=== PATIENT | female | born 1945 | race Caucasian/White ===

== ENCOUNTER 2018-05-12 08:48 | Day surgery (SDC) | payer OTHER, BC ==
--- OUTSIDE RECORDS SUMMARY | 2018-05-12 08:51 | XMS REPORT | Clinical Summary ---
:1945 Author Organization [facility] Address [address] [place] [address] Care Team Providers Name Role Phone Kimani Bone MD Primary Care Provider Allergies No Known Allergies Medications Medication Sig Dispensed Refills Start Date End Date Status RESTASIS 0.05 % 0 12/03/2017 Active ophthalmic emulsion meloxicam (MOBIC) 15 0 02/06/2018 Active mg tablet omeprazole TAKE 1 0 11/18/2017 Active (PriLOSEC) 40 MG CAPSULE BY capsule MOUTH ONCE DAILY levothyroxine Take 50 mcg 0 05/17/2017 Active (SYNTHROID, LEVOXYL) by mouth. 50 mcg tablet aspirin (ECOTRIN) 81 Take 81 mg by 0 Active MG enteric coated mouth. 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 Last Filed Vital Signs Vital Sign Reading Time Taken Blood Pressure - - Pulse - - Temperature - - Respiratory Rate - - Oxygen Saturation - - Inhaled Oxygen Concentration - - Weight 86.2 kg (190 lb) 03/10/2018 8:25 AM CDT Height 160 cm (5' 3") 03/10/2018 8:25 AM CDT Body Mass Index 33.66 03/10/2018 8:25 AM CDT Plan of Treatment Health Maintenance Due Date Last Done Comments BREAST CANCER SCREENING 1995 COLON CANCER SCREENING 1995 SHINGRIX VACCINE (1 of 2) 1995 ZOSTER VACCINE 2005 PNEUMOCOCCAL POLYSACCHARIDE VACCINE AGE 65 AND OVER 2010 INFLUENZA VACCINE 01/08/2018 05/10/2016 PNEUMOCOCCAL-13 Completed 01/01/2018 Procedures Procedure Name Priority Date/Time Associated Diagnosis Comments OCT, OPTIC NERVE - Routine 03/10/2018 9:06 AM Visual field defect Results for this OU - BOTH EYES CDT of left eye procedure are in Unspecified visual the results field defects section. 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 after 05/11/2017 Results OCT, Optic Nerve - OU (03/10/2018 9:06 AM CDT) Narrative Performed At Right Eye Reliability was good. Temporal progression was stable. Temporal thickness was normal. Superior progression was stable. Superior thickness was normal. Nasal progression was stable. Nasal thickness was normal. Inferior progression was stable. Inferior thickness was normal. Left Eye Reliability was good. Temporal progression was stable. Temporal thickness was normal. Superior progression was stable. Superior thickness was normal. Nasal progression was stable. Nasal thickness was normal. Inferior progression was stable. Inferior thickness was normal. Notes OD: 103 OS: 105 Automated Visual Field, Extended - OU (03/10/2018 9:06 AM CDT) Narrative Performed At Right Eye Threshold was 24-2. Strategy was GILLIAN. Reliability was borderline. Progression has no prior data. Foveal threshold was normal. -3.06. Findings include non-specific defects. Left Eye Threshold was 24-2. Strategy was GILLIAN. Reliability was borderline. Progression has no prior data. Foveal threshold was normal. -2.78. Findings include non-specific defects. after 05/11/2017 Insurance Payer Benefit Plan / Group Subscriber ID Type Phone Address MEDICARE MEDICARE PART A AND B xxxxxxxxxx Medicare [place], [place] BCBS BCBS CHOICE PPO/FEDERAL EMPL PPO xxxxxxxxxxxx PPO Advance Directives Patient has advance care planning documents on file. For more information, please contact:Atif Polanco[address] [place] [address]
[2018-05-12] MEDS ORDERED: LIDOCAINE 2% MPF 5 ML VIAL ONE ×2 (09:25→11:15)
[2018-05-12] MEDS ORDERED: BUPIVACAINE 0.25% PF 10 ML VIAL ONE (09:25)
[2018-05-12] MEDS ORDERED: TETRACAINE HCL 0.5% 2ML OPTH ONE (09:26)
[2018-05-12] MEDS ORDERED: NA CHLORIDE 0.9% 500 ML ONE (09:26)
[2018-05-12] MEDS: PHENYLEPHRINE 10% OPTH 5ML ONE ×3 (09:35→09:45)
[2018-05-12] MEDS: CYCLOPENTOLATE 1% OPTH 2 ML ONE ×3 (09:35→09:45)
[2018-05-12] MEDS ORDERED: NS 0.9% VIAL 10 ML ONE (09:59)
[2018-05-12] MEDS ORDERED: DUOVISC 1 KIT OPTH ONE (10:00)
[2018-05-12] MEDS ORDERED: MOXIFLOXACIN HCL 10 DROPS/ML **OR USE OPTH ONE (10:00)
[2018-05-12] MEDS ORDERED: BALANCED SALT IRRIG PLAIN 500 ML BTL IRR ONE (10:00)
[2018-05-12] MEDS ORDERED: PROPOFOL 200 MG/20 ML VIAL IV ONE (10:22)
[2018-05-12] MEDS ORDERED: LIDOCAINE 1% MPF 2 ML AMPULE ONE (10:23)
[2018-05-12] MEDS ORDERED: GLYCOPYRROLATE 0.2 MG/ML SYR ONE (11:08)
[2018-05-12] MEDS: EPINEPHRINE/PF 1 MG/ML AMP ONE ×2 (11:12→11:13)
--- NOTE | 2018-05-12 11:32 | P.BOP ---
Preoperative diagnosis: Nuclear sclerotic and cortical cataract, regular astigmatism OS Postoperative diagnosis: Same Primary procedure: Phacoemulsification with Toric IOL OS Estimated blood loss: None Anesthesia: Local (Subtenon's infusion with anesthesia for cataract surgery) Complications: None Implants: [id number] +27.0 @ 0 degrees Transferred to: Other (Day surgery) Condition: Good
--- NOTE | 2018-05-12 23:04 | OP ---
Surgeon: Maritza Greer MD Anesthesiologist: Aurora Wren CRNA; Sheila Oquendo CRNA; and Danny Leach MD. Preoperative Diagnosis: Nuclear sclerotic, cortical cataract, and regular astigmatism, left eye. Operation Performed: Phacoemulsification with intraocular lens implant, left eye. Anesthesia: Per cataract surgery. Complications: None. Description Of Procedure: In day surgery, the patient was prepped with Betadine and draped. A conju nctival incision was made in the inferior nasal quadrant with Conor scissors. A sub-Tenon block c onsisting of a 1:1 mixture of 2% Xylocaine and 0.25% bupivacaine was placed through the conjunctival incision with a blunt cannula. A Honan balloon was placed over the eye and the patient was transferr ed to the operating room. In the operating room the patient was prepped and draped in the usual sterile fashion for ophthalmic surgery. A lid speculum was placed in the left eye. Two paracentesis sites were made superiorly and inferiorly in the limbal cornea. Viscoat was placed in the anterior chamber and a crescent blade wa s used to make a corneal groove and tunnel, and a keratome was used to enter the anterior chamber. P rovisc was placed in the anterior chamber and a 360 degree capsulotomy was performed with a cystitome . The lens was hydrodissected with BSS and rotated freely. The lens was removed with a stop and cho p technique. A 4.67 phaco CDE was used to remove the lens. Residual cortex was removed with the irr igation and aspiration. Provisc was placed in the capsular bag. A [id number] +27 at 0 degrees lens was placed in the capsular bag without complications. Irrigation and aspiration were used to remove resi dual viscoelastic. The paracentesis sites were hydrated with BSS. The wound and paracentesis sites were inspected and found to be watertight. Vigamox 0.07 cc was placed intracamerally at the end of t he procedure. The eye was irrigated with balanced salt solution. The eye was patched with a soft co tton patch and Crystal metal shield. The patient was returned to day surgery in good condition. Comments: Discharge Instructions: Ms. Marmolejo is discharged to home in good condition and is to follow up with Dr. Greer. SHAISTA/LIBRADO Voice ID: [id number] Report ID: [id number]
== END 2018-05-12 12:00 | disposition home or self-care (01) ==
LOC: OR 08:48
PROVIDERS: ATTEND Ophthalmology Retina Specialist
PROC: 08RK3JZ Replacement of Left Lens with Synthetic Substitute, Percutaneous Approach (ICD-10-PCS; principal; 2018-05-12 09:50)
DX: H25.12 Age-related nuclear cataract, left eye (principal); H25.012 Cortical age-related cataract, left eye; H52.222 Regular astigmatism, left eye; H04.123 Dry eye syndrome of bilateral lacrimal glands; E07.9 Disorder of thyroid, unspecified; Z80.9 Family history of malignant neoplasm, unspecified
CPT/HCPCS: 66984; J0171; J2001; J2704; V2787

== ENCOUNTER 2018-06-16 06:54 | Day surgery (SDC) | payer OTHER, BC ==
--- OUTSIDE RECORDS SUMMARY | 2018-06-16 06:57 | XMS REPORT | Clinical Summary ---
:1945 Author Organization [facility] Address [address] [place] [address] Care Team Providers Name Role Phone Kimani [...] pathway; Nuclear age-related cataract, both eyes after 06/15/2017 Social History Tobacco Use Types Packs/Day Years [...] CANCER SCREENING 1995 COLON CANCER SCREENING 1995 SHINGLES VACCINES (1 of 2) 1995 PNEUMOCOCCAL POLYSACCHARIDE VACCINE AGE 65 AND OVER [...] Blurred vision, the results bilateral section. after 06/15/2017 Results OCT, Optic Nerve - OU (03/10/2018 [...] normal. -2.78. Findings include non-specific defects. after 06/15/2017 Insurance Payer Benefit Plan / Group Subscriber ID Type Phone Address MEDICARE MEDICARE PART A AND B xxxxxxxxxx Medicare [place], [place] BCBS BCBS CHOICE PPO/FEDERAL EMPL PPO xxxxxxxxxxxx PPO Advance Directives Patient has advance care planning documents on file. For more information, please contact:Atif Polanco[address] [place] [address]
[2018-06-16] MEDS ORDERED: NA CHLORIDE 0.9% 500 ML ONE (07:18)
[2018-06-16] MEDS ORDERED: BUPIVACAINE 0.25% PF 10 ML VIAL ONE (07:18)
[2018-06-16] MEDS ORDERED: LIDOCAINE 2% MPF 5 ML VIAL ONE (07:18)
[2018-06-16] MEDS ORDERED: TETRACAINE HCL 0.5% 2ML OPTH ONE (07:18)
[2018-06-16] MEDS: PHENYLEPHRINE 10% OPTH 5ML ONE ×3 (07:19→07:29)
[2018-06-16] MEDS: CYCLOPENTOLATE 1% OPTH 2 ML ONE ×3 (07:19→07:29)
[2018-06-16] MEDS ORDERED: LIDOCAINE 1% MPF 5 ML VIAL ONE ×2 (07:19→08:23)
[2018-06-16] MEDS ORDERED: NS 0.9% VIAL 10 ML ONE (08:01)
[2018-06-16] MEDS ORDERED: EPINEPHRINE/PF 1 MG/ML AMP ONE (08:02)
[2018-06-16] MEDS ORDERED: DUOVISC 1 KIT OPTH ONE (08:03)
[2018-06-16] MEDS ORDERED: BALANCED SALT IRRIG PLAIN 500 ML BTL IRR ONE (08:03)
[2018-06-16] MEDS ORDERED: MOXIFLOXACIN HCL 10 DROPS/ML **OR USE OPTH ONE (08:04)
[2018-06-16] MEDS ORDERED: PROPOFOL 200 MG/20 ML VIAL IV ONE (08:23)
--- NOTE | 2018-06-16 09:03 | P.BOP ---
Preoperative diagnosis: Nuclear sclerotic cataract and regular astigmatism OD Postoperative diagnosis: Same Primary procedure: Phacoemulsification with Toric IOL OD Estimated blood loss: None Anesthesia: Local (Subtenon's infusion with anesthesia for cataract surgery) Complications: None Implants: [id number] +27.0 @ 175 degrees Transferred to: Other (Day surgery) Condition: Good
--- NOTE | 2018-06-16 21:21 | OP ---
Surgeon: Maritza Greer MD Anesthesiologist: Anderson Wolf CRNA and Danny eLach. Preoperative Diagnosis: Nuclear sclerotic cataract and regular astigmatism, right eye. Operation Performed: Phacoemulsification with toric intraocular lens implant, right eye. Anesthesia: Per cataract surgery. Complications: None. Description Of Procedure: In day surgery, the patient was prepped with Betadine and draped. A conju nctival incision was made in the inferior nasal quadrant with Conor scissors. A sub-Tenon block c onsisting of a 1:1 mixture of 2% Xylocaine and 0.25% bupivacaine was placed through the conjunctival incision with a blunt cannula. A Honan balloon was placed over the eye and the patient was transferr ed to the operating room. In the operating room the patient was prepped and draped in the usual sterile fashion for ophthalmic surgery. A lid speculum was placed in the right eye. Two paracentesis sites were made superiorly an d inferiorly in the limbal cornea. Viscoat was placed in the anterior chamber and a crescent blade w as used to make a corneal groove and tunnel, and a keratome was used to enter the anterior chamber. Provisc was placed in the anterior chamber and a 360 degree capsulotomy was performed with a cystitom e. The lens was hydrodissected with BSS and rotated freely. The lens was removed with a stop and ch op technique. 5.43 phaco CDE was used to remove the lens. Residual cortex was removed with the irri gation and aspiration. Provisc was placed in the capsular bag. A [id number] +27.0 at 175 degrees lens w as placed in the capsular bag without complications. Irrigation and aspiration were used to remove r esidual viscoelastic. The paracentesis sites were hydrated with BSS. The wound and paracentesis sit es were inspected and found to be watertight. Vigamox 0.07 cc was placed intracamerally at the end o f the procedure. The eye was irrigated with balanced salt solution. The eye was patched with a soft cotton patch and Crystal metal shield. The patient was returned to day surgery in good condition. Comments: 1:5000 epi was placed in the anterior chamber prior to Viscoat. Discharge Instructions: Ms. Marmolejo is discharged to home in good condition and is to follow up with Dr. Greer in the morning. JHL/MODL Voice ID: [id number] Report ID: [id number]
== END 2018-06-16 09:34 | disposition home or self-care (01) ==
LOC: OR 06:54
PROVIDERS: ATTEND Ophthalmology Retina Specialist
PROC: 08RJ3JZ Replacement of Right Lens with Synthetic Substitute, Percutaneous Approach (ICD-10-PCS; principal; 2018-06-16 08:30)
DX: H25.11 Age-related nuclear cataract, right eye (principal); H25.011 Cortical age-related cataract, right eye; H52.221 Regular astigmatism, right eye; H04.123 Dry eye syndrome of bilateral lacrimal glands; E07.9 Disorder of thyroid, unspecified; Z80.9 Family history of malignant neoplasm, unspecified
CPT/HCPCS: 66984; J0171; J2704; V2787

== ENCOUNTER 2020-01-20 09:41 | Observation (INO) | payer OTHER, BC ==
--- NOTE | 2020-01-20 10:15 | RAD REPORT ---
EXAM DESCRIPTION: CT - Ct Stroke Brain Wo Cont - 01/20/2020 10:03 am CLINICAL HISTORY: right arm weakness COMPARISON: No comparisons TECHNIQUE: Axial 5 millimeter thick images of the head were obtained without IV contrast. All CT scans are performed using dose optimization technique as appropriate and may include automated exposure control or mA/KV adjustment according to patient size. FINDINGS: No intracranial hemorrhage, mass, or cerebral edema. No acute infarction identifiable. No cortical edema or sulcal effacement. Teresa matter-white matter differentiation is preserved.No signifi cant atrophy change for patient age. Chronic ischemic changes minimal. Mild for age arterial tree calcifications. Physiologic calcifications are present. Visualized portions of the mastoid air cells, paranasal sinuses, and orbits are unremarkable. Findings telephoned to the referring physician 10:10 a.m.. IMPRESSION: No CT evidence of acute intracranial process. Patient has minimal chronic ischemic changes evident. Ongoing clinical concerns for acute CVA can be addressed with MR imaging.
[2020-01-20 10:36] LABS: Absolute Lymphocytes (CBC) 1.8 K/uL (0.7-4.9); Basophils % 0.9 % (0-1.3); Hematocrit 39.2 % (36.0-45.0); Lymphocytes % 31.7 % (15.3-44.8); MPV 7.6 fL (7.6-11.3); RBC Red Blood Cell Count 4.22 M/uL (3.86-4.86)
[2020-01-20 10:42] LABS: Protime INR 0.92
--- NOTE | 2020-01-20 10:52 | RAD REPORT ---
EXAM DESCRIPTION: RAD - Chest Single View - 01/20/2020 10:25 am CLINICAL HISTORY: Stroke w/u COMPARISON: None TECHNIQUE: AP portable chest image was obtained 01/20/2020 10:25 am . FINDINGS: Lungs are clear. Heart and vasculature are normal. No measurable pleural effusion and no p neumothorax. Bony degenerative change present. No acute findings seen. No acute aortic findings suspe cted. IMPRESSION: No acute cardiopulmonary process.
[2020-01-20 10:56] LABS: Potassium 4.4 mmol/L (3.5-5.1)
[2020-01-20] MEDS ORDERED: TETANUS & DIPHTHERIA TOX,ADULT 0.5 ML VIAL ONE (11:15)
--- NOTE | 2020-01-20 12:36 | EKG ---
Test Date: 2020-01-20 Test Time: 10:19:46 Director Of Leadership Development: BP MEASUREMENT RESULTS: Intervals: Rate: 60 [place]: 180 QRSD: 82 QT: 416 QTc: 416 [place]: P: 49 [place]: 180 QRS: -19 T: 0 INTERPRETIVE STATEMENTS: Normal sinus rhythm Septal infarct, age undetermined Possible Lateral infarct, age undetermined Inferior infarct, age undetermined Abnormal ECG Compared to ECG 04/27/2004 09:13:00 Myocardial infarct finding now present Electronically Signed On 01-20-20 12:35:23 CDT by Obed Xavier
--- NOTE | 2020-01-20 12:42 | RAD REPORT ---
EXAM DESCRIPTION: RAD - Nasal Bones - 01/20/2020 12:02 pm CLINICAL HISTORY: FACIAL PAINfall, trauma to the face COMPARISON: No comparisons FINDINGS: A very tiny chip fracture is present at the tip of the nasal bone. No distraction or angul ation of the nasal bones. Nasal septum is in the midline. No air-fluid level in the maxillary sinuses. IMPRESSION: Patient has a very tiny fracture at the tip of the nasal bone.
--- NOTE | 2020-01-20 12:42 | RAD REPORT ---
EXAM DESCRIPTION: Shoulder Right 2 View - 01/20/2020 12:02 pm CLINICAL HISTORY: PAIN, fall, shoulder pain on the right COMPARISON: No comparisons TECHNIQUE: Internal and external rotation views of the right shoulder were obtained. FINDINGS: There is no fracture or dislocation. AC joint is normal in appearance. Bones overall appe ar osteopenic. Acromial humeral joint space is normal. No suspicious soft tissue calcification. IMPRESSION: Osteopenic and degenerative change without acute right shoulder finding.
--- NOTE | 2020-01-20 12:46 | RAD REPORT ---
EXAM DESCRIPTION: MRI - Brain Wo Cont - 01/20/2020 12:18 pm CLINICAL HISTORY: numbness COMPARISON: Head CT January 20, 2020 TECHNIQUE: Axial, sagittal, and coronal magnetic images of the brain were obtained. Contrast was not requested FINDINGS: No significant abnormal signal is present within the brain. Diffusion-weighted/ADC mapping does not reveal evidence of acute infarction. The ventricles are normal caliber. An extra-axial fluid collection is not present Fluid within the sinuses/mastoids is not noted IMPRESSION: No acute abnormality is displayed
--- NOTE | 2020-01-20 13:03 | EDPHYS ---
[facility] Name: Dee Marmolejo Age: 74 yrs Sex: Female : 1945 Arrival Date: 01/20/2020 Time: 09:42 Bed 15 Private MD: ED Physician Vidal Marie HPI: 01/19 11:11 This 74 yrs old Female presents to ER via Wheelchair with complaints of Fall kdr Injury, S/S of Possible Stroke. 11:11 Details of fall: The patient fell from an upright position, while standing. The patient kdr states that she was outside watering at 9:15 when she suddenly lost strength in her right arm. She was not able to use it at all. Before potentially falling, she got down on the ground and began crawling to the house but since she had no strength in her right arm, she fell face first onto the ground. She denies LOC. - Immunization history:: Adult Immunizations up to date. - Immunization history: Last tetanus immunization: unknown. - Social history:: Smoking status: Patient denies any tobacco usage or history of. ROS: 11:11 Constitutional: Negative for fever, chills, and weight loss, Eyes: Negative for injury, kdr pain, redness, and discharge, Neck: Negative for injury, pain, and swelling, Cardiovascular: Negative for chest pain, palpitations, and edema, Respiratory: Negative for shortness of breath, cough, wheezing, and pleuritic chest pain, Abdomen/GI: Negative for abdominal pain, nausea, vomiting, diarrhea, and constipation, Back: Negative for injury and pain, : Negative for injury, bleeding, discharge, and swelling, MS/Extremity: Negative for injury and deformity, Skin: Negative for injury, rash, and discoloration, Psych: Negative for depression, anxiety, suicide ideation, homicidal ideation, and hallucinations, Allergy/Immunology: Negative for hives, rash, and allergies, Endocrine: Negative for neck swelling, polydipsia, polyuria, polyphagia, and marked weight changes, Hematologic/Lymphatic: Negative for swollen nodes, abnormal bleeding, and unusual bruising. 11:11 Neuro: Positive for weakness, of the right arm, Negative for altered mental status, headache, hearing loss, loss of consciousness, seizure activity, speech changes, syncope, near syncope. Exam: 11:11 Constitutional: This is a well developed, well nourished patient who is awake, alert, kdr and in no acute distress. Head/Face: Normocephalic, atraumatic. Eyes: Pupils equal round and reactive to light, extra-ocular motions intact. Lids and lashes normal. Conjunctiva and sclera are non-icteric and not injected. Cornea within normal limits. Periorbital areas with no swelling, redness, or edema. Neck: Trachea midline, no thyromegaly or masses palpated, and no cervical lymphadenopathy. Supple, full range of motion without nuchal rigidity, or vertebral point tenderness. No Meningismus. Chest/axilla: Normal chest wall appearance and motion. Nontender with no deformity. No lesions are appreciated. Vital Signs: 09:51 BP 152 / 87; Pulse 69; Resp 17; Temp 98.3; Pulse Ox 99% ; bp 10:47 BP 166 / 77; Pulse 53; Resp 12; Pulse Ox 98% ; bp 12:02 BP 164 / 78; Pulse 57; Resp 12; Pulse Ox 99% ; bp 12:34 BP 165 / 80; Pulse 50; Resp 18; Pulse Ox 98% on R/A; ks7 14:00 BP 163 / 86; Pulse 56; Resp 17; Pulse Ox 100% ; bp Alda Coma Score: 10:00 Eye Response: spontaneous(4). Verbal Response: oriented(5). Motor Response: obeys bp commands(6). Total: 15. Trauma Score (Adult): 10:00 Eye Response: spontaneous(1); Verbal Response: oriented(1); Motor Response: obeys bp commands(2); Systolic BP: > 89 mm Hg(4); Respiratory Rate: 10 to 29 per min(4); Alda Score: 15; Trauma Score: 12 MDM: 13:03 Patient medically screened. kdr 13:03 Data reviewed: vital signs, nurses notes, lab test result(s), EKG, radiologic studies. kdr Counseling: I had a detailed discussion with the patient and/or guardian regarding: the historical points, exam findings, and any diagnostic results supporting the discharge/admit diagnosis, lab results, radiology results, the need for further work-up and treatment in the hospital. 01/19 09:53 Order name: Basic Metabolic Panel; Complete Time: 11:03 kdr 08/12 09:53 Order name: CBC with Diff; Complete Time: 10:50 kdr 01/19 09:53 Order name: Protime (+inr); Complete Time: 10:50 kdr 01/19 09:53 Order name: Ptt, Activated; Complete Time: 10:50 kdr 01/19 10:06 Order name: Glucose, Ancillary Testing; Complete Time: 10:50 EDMS 01/19 13:30 Order name: Comprehensive Metabolic Panel EDMS 01/19 13:30 Order name: Comprehensive Metabolic Panel EDMS 01/19 13:30 Order name: Creatine Phosphokinase EDMS 01/19 13:30 Order name: Creatine Phosphokinase EDMS 01/19 13:30 Order name: Lipid Profile EDMS 01/19 13:30 Order name: Lipid Profile EDMS 01/19 13:30 Order name: Protime (+INR) EDMS 01/19 13:30 Order name: Protime (+INR) EDMS 01/19 13:30 Order name: PTT, Activated Partial Thromb EDMS 01/19 09:53 Order name: CT Stroke Brain w/o Contrast; Complete Time: 10:50 kdr 01/19 09:53 Order name: Stroke CXR 1 View; Complete Time: 11:03 kdr 01/19 09:53 Order name: EKG; Complete Time: 09:53 kdr 01/19 10:50 Order name: Shoulder Right (2 View) XRAY; Complete Time: 12:50 kdr 01/19 10:50 Order name: Nasal Bones XRAY; Complete Time: 12:50 kdr 01/19 12:09 Order name: Brain Wo Cont; Complete Time: 12:50 EDMS 01/19 13:30 Order name: CONS Pharmacy Consult EDMS 01/19 13:30 Order name: CONS Physician Consult EDMS 01/19 13:30 Order name: PTT, Activated Partial Thromb EDMS 01/19 13:30 Order name: Troponin I EDMS 01/19 13:30 Order name: Troponin I EDMS 01/19 13:30 Order name: Troponin I EDMS 01/19 13:31 Order name: Echo with Doppler EDMS 01/19 13:31 Order name: Carotid Artery Bilateral; Complete Time: 15:55 EDMS 01/19 09:53 Order name: Accucheck; Complete Time: 10:02 kdr 01/19 09:53 Order name: Cardiac monitoring; Complete Time: 10:02 kdr 01/19 09:53 Order name: EKG - Nurse/Tech; Complete Time: 10: kdr 01/19 09:53 Order name: IV Saline Lock; Complete Time: 10: kdr 01/19 09:53 Order name: Labs collected and sent; Complete Time: 10: kdr 01/19 09:53 Order name: NPO; Complete Time: 10: kdr 01/19 09:53 Order name: O2 Per Protocol; Complete Time: 10: kdr 01/19 09:53 Order name: O2 Sat Monitoring; Complete Time: 10: kdr 01/19 09:53 Order name: Stroke Swallow Screen; Complete Time: 10: kdr 01/19 13:30 Order name: Regular EDMS 01/19 13:31 Order name: EKG Electrocardiogram EDMS 01/19 13:31 Order name: EKG Electrocardiogram EDMS Administered Medications: 11:00 Drug: Tetanus-Diphtheria Toxoid Adult 0.5 ml {Collar Runner: [employer]. Exp: bp 07/30/2022. Lot #: [id number]. } Route: IM; Site: right deltoid; 12:07 Follow up: Response: No adverse reaction bp Disposition: 01/20/20 13:03 Hospitalization ordered by Rahul Velez for Inpatient Admission. Preliminary diagnosis is Transient cerebral ischemic attack, unspecified - Right upper extremity . - Bed requested for Telemetry/MedSurg (observation). - Status is Inpatient Admission. bp - Condition is Fair. - Problem is new. - Symptoms have improved. Signatures: Dispatcher [employer] EDKY Valery Juarez RN RN kl Rittger, Kevin, MD MD [facility] Ye Santiago RN RN bp Corrections: (The following items were deleted from the chart) 12:09 10:11 MR STROKE PROTOCOL+MRI.RAD.BRZ ordered. EDKY EDMS 13:31 13:03 Hospitalization Ordered by Kiran Fragoso DO for Inpatient Admission. Preliminary [facility] diagnosis is Transient cerebral ischemic attack, unspecified - Right upper extremity . Bed requested for Telemetry/MedSurg (observation). Status is Inpatient Admission. Condition is Fair. Problem is new. Symptoms have improved. kdr 13:42 13:31 01/20/2020 13:03 Hospitalization Ordered by Rahul Velez MD for Inpatient kl Admission. Preliminary diagnosis is Transient cerebral ischemic attack, unspecified - Right upper extremity . Bed requested for Telemetry/MedSurg (observation). Status is Inpatient Admission. Condition is Fair. Problem is new. Symptoms have improved. kdr 15:39 13:42 01/20/2020 13:03 Hospitalization Ordered by Rahul Velez MD for Inpatient bp Admission. Preliminary diagnosis is Transient cerebral ischemic attack, unspecified - Right upper extremity . Bed requested for Telemetry/MedSurg (observation). Status is Inpatient Admission. Condition is Fair. Problem is new. Symptoms have improved. kl
--- NOTE | 2020-01-20 13:03 | ER ---
Nurse's Notes [facility] Name: Dee Marmolejo Age: 74 yrs Sex: Female : 1945 Arrival Date: 01/20/2020 Time: 09:42 Bed 15 Private MD: Diagnosis: Transient cerebral ischemic attack, unspecified-Right upper extremity Presentation: 01/19 09:51 Chief complaint: Patient states: ACUTE R SIDED PARASTHESIA AT 0915 INVOLVING R ARM AND bp LEG RESULTING IN FALL. S/S NOW RESOLVED, [place]. Coronavirus screen: At this time, the client does not indicate any symptoms associated with coronavirus-19. Ebola Screen: No symptoms or risks identified at this time. Initial Sepsis Screen: Does the patient meet any 2 criteria? No. Patient's initial sepsis screen is negative. Initial Sepsis Screen: Does the patient have a suspected source of infection? No. Patient's initial sepsis screen is negative. Risk Assessment: Do you want to hurt yourself or someone else? Patient reports no desire to harm self or others. Onset of symptoms was January 20, 2020 at 09:15. 09:51 Method Of Arrival: Wheelchair bp 09:51 Acuity: YULIANA 2 bp 09:51 Care prior to arrival: None. Mechanism of Injury: Fall from standing position. Trauma bp event details: Injury occurred in the [facility], Injury occurred: at home. Injury occurred: January 20, 2020 Injury occurred at: 09:15. 10:01 Note symptoms started at 0915, pt reported that her right arm "went ", could not iw turn water faucet. Triage Assessment: 09:59 General: Appears in no apparent distress. uncomfortable, obese, Behavior is calm, bp cooperative, appropriate for age. Pain: Complains of pain in face. EENT: Eyes EOM INTACT. Neuro: Level of Consciousness is awake, alert, obeys commands, Oriented to person, place, time, situation, Appropriate for age Dormitory Maid are equal bilaterally Moves all extremities. Full function Speech is normal, Facial symmetry appears normal. Cardiovascular: Rhythm is sinus rhythm. Respiratory: No deficits noted. GI: No signs and/or symptoms were reported involving the gastrointestinal system. : No signs and/or symptoms were reported regarding the genitourinary system. Derm: No deficits noted. Musculoskeletal: No deficits noted. Injury Description: Abrasion sustained to face, right hand and right leg. Trauma Activation: Not Applicable Physician: ED Physician; Name: ; Notified At: ; Arrived At: Physician: General Surgeon; Name: ; Notified At: ; Arrived At: Physician: Radiology; Name: ; Notified At: ; Arrived At: Physician: Respiratory; Name: ; Notified At: ; Arrived At: Physician: Lab; Name: ; Notified At: ; Arrived At: - Immunization history:: Adult Immunizations up to date. - Immunization history: Last tetanus immunization: unknown. - Social history:: Smoking status: Patient denies any tobacco usage or history of. Screenin:01 Abuse screen: Denies threats or abuse. Denies injuries from another. Nutritional bp screening: No deficits noted. Tuberculosis screening: No symptoms or risk factors identified. Fall Risk None identified. Primary Survey: 10:00 NO uncontrolled hemorrhage observed. A: The patient is alert. Airway: patent. bp Breathing/Chest: Respiratory pattern: regular, Respiratory effort: spontaneous, unlabored. Circulation: Cardiac rhythm: sinus rhythm. Disability Alert. Exposure/Environment: There is no evidence of uncontrolled external bleeding. Obvious injury(ies) are noted at this time: ABRASIONS TO UPPER LIP, NASAL BRIDGE, RUE AND RLE. 14:09 Reassessment Airway Airway Patent Breathing/Chest Respiratory pattern Regular bp Respiratory effort Spontaneous Unlabored. Assessment: 10:01 General: SEE TRIAGE NOTE. PT TO CT STAT. bp 10:45 Reassessment: MRI PENDING. Neuro: Level of Consciousness is awake, alert, obeys bp commands, Oriented to person, place, time, situation, Appropriate for age Dormitory Maid are equal bilaterally Moves all extremities. Full function Speech is normal, Facial symmetry appears normal. 12:00 Reassessment: PT TO MRI. bp 13:00 Reassessment: ADMIT INITIATED BY MD FOR TIA. PT REMAINS NEURO INTACT AT THIS TIME. bp 14:05 Reassessment: CAROTID U/S COMPLETED, ADMIT IN PROCESS. bp Vital Signs: 09:51 BP 152 / 87; Pulse 69; Resp 17; Temp 98.3; Pulse Ox 99% ; bp 10:47 BP 166 / 77; Pulse 53; Resp 12; Pulse Ox 98% ; bp 12:02 BP 164 / 78; Pulse 57; Resp 12; Pulse Ox 99% ; bp 12:34 BP 165 / 80; Pulse 50; Resp 18; Pulse Ox 98% on R/A; ks7 14:00 BP 163 / 86; Pulse 56; Resp 17; Pulse Ox 100% ; bp [place] Coma Score: 10:00 Eye Response: spontaneous(4). Verbal Response: oriented(5). Motor Response: obeys bp commands(6). Total: 15. Trauma Score (Adult): 10:00 Eye Response: spontaneous(1); Verbal Response: oriented(1); Motor Response: obeys bp commands(2); Systolic BP: > 89 mm Hg(4); Respiratory Rate: 10 to 29 per min(4); [place] Score: 15; Trauma Score: 12 ED Course: 09:42 Patient arrived in ED. ag5 09:47 Vidal Marie MD is Attending Physician. kdr 09:51 Ye Santiago, DOROTHEA is Primary Nurse. bp 09:59 Triage completed. bp 09:59 Arm band placed on. bp 10:01 Patient has correct armband on for positive identification. Bed in low position. Call bp light in reach. Side rails up X2. 10:03 CT Stroke Brain w/o Contrast In Process Unspecified. EDMS 10:25 Stroke CXR 1 View In Process Unspecified. EDMS 10:25 Inserted saline lock: 20 gauge in right antecubital area, using aseptic technique. bp 10:31 Patient maintains SpO2 saturation greater than 95% on room air. Thermoregulation: warm bp blanket given to patient. 12:02 Shoulder Right (2 View) XRAY In Process Unspecified. EDMS 12:02 Nasal Bones XRAY In Process Unspecified. EDMS 12:11 Brain Wo Cont In Process Unspecified. EDMS 12:25 Patient moved back from MRI. ks7 13:01 Kiran Fragoso DO is Hospitalizing Provider. kdr 13:31 Rahul Velez MD is Hospitalizing Provider. kdr 14:08 No provider procedures requiring assistance completed. Patient admitted, IV remains in bp place. Administered Medications: 11:00 Drug: Tetanus-Diphtheria Toxoid Adult 0.5 ml {Airport Maintenance Chief: Iunika. Exp: bp 07/30/2022. Lot #: [id number]. } Route: IM; Site: right deltoid; 12:07 Follow up: Response: No adverse reaction bp Intake: 10:00 PO: 0ml; Total: 0ml. bp Output: 10:00 Urine: 0ml; Total: 0ml. bp Outcome: 13:03 Decision to Hospitalize by Provider. kdr 14:10 Condition: stable bp 14:10 Patient's length of stay in the Emergency Department was greater than 2 hours. 14:45 Admitted to Med/surg via wheelchair, room 216, with chart, Report called to YG PIEDRA bp 14:45 Instructed on the need for admit. 15:39 Patient left the ED. bp Signatures: Dispatcher [employer] EDMS Vidal Marie MD MD kdr Camila Waite RN RN iw Ye Santiago RN RN bp Alexi Dela Cruz ag5 Minda Pillai RN RN ks7 Corrections: (The following items were deleted from the chart) 12:09 12:07 To radiology for MR STROKE PROTOCOL+MRI.RAD.BRZ. bp EDMS 12:36 12:34 BP 156 / 94; Pulse 48bpm; Resp 18bpm; Pulse Ox 100% RA; ks7 ks7
--- OUTSIDE RECORDS SUMMARY | 2020-01-20 13:04 | XMS REPORT | Summary of Care ---
:1945 Author Organization [facility] Address [address] [place] [id number] Care Team Providers Name Role Phone Kimani Bone MD Primary Care Provider [phone] Reason for Visit Reason Comments Notification Encounter Details Date Type Department Care Team Description 12/18/[address] [facility] Family Medicine Mikel Bone, Tariq - Braxton BARAHONA [address] [place] [address] Dr [address] [place] [address] [place] [address] [place] [id number] [phone] Allergies No Known Allergiesdocumented as of this encounter (statuses as of 12/18/2019) Medications Medication Sig Dispensed Refills Start Date End Date Status aspirin (ASPIRIN LOW Take 81 mg by 0 Active DOSE) 81 mg EC tablet mouth daily. levothyroxine 50 mcg Take 1 tablet 90 tablet 4 03/20/2019 Active tabletIndications: by mouth every Acquired hypothyroidism morning. meloxicam 15 mg Take 1 tablet 90 tablet 4 03/20/2019 Active tabletIndications: by mouth daily. Arthritis omeprazole 40 mg Take 1 capsule 90 capsule 4 03/20/2019 Active capsuleIndications: by mouth daily. Gastroesophageal reflux disease without esophagitis lisinopril 5 mg Take 1 tablet 30 tablet 12 08/18/2019 Active tabletIndications: by mouth daily. Essential hypertension documented as of this encounter (statuses as of 12/18/2019) Active Problems Problem Noted Date Obesity (BMI 30-39.9) 09/27/2016 Restless leg syndrome 07/27/2015 Hypothyroid 07/27/2015 Gastroesophageal reflux disease without esophagitis Arthritis 07/27/2015 documented as of this encounter (statuses as of 12/18/2019) Immunizations Name Administration Dates Next Due Influenza High Dose 03/20/2019, 05/10/2016 Pneumococcal 13 Conjugate, PCV13 (Prevnar 13) 01/01/2018 Pneumococcal Polysaccharide, PPSV23 (PNEUMOVAX) 03/20/2019 TDAP 01/01/2018 documented as of this encounter Social History Tobacco Use Types Packs/Day Years Used Date Never Smoker Smokeless Tobacco: Never Used Alcohol Use Drinks/Week oz/Week Comments No 0 Standard drinks or equivalent 0.0 Sex Assigned at Date Recorded Not on file Job Start Date Occupation Industry Not on file Not on file Not on file Travel History Travel Start Travel End No recent travel history available. documented as of this encounter Last Filed Vital Signs Not on filedocumented in this encounter Plan of Treatment Health Maintenance Due Date Last Done Comments HEPATITIS C (HCV) SCREEN 1945 COLONOSCOPY 1995 Zoster Recombinant Vaccine 1995 (SHINGRIX) (1 of 2) Medicare Wellness Visit 2010 Osteoporosis Screening 2010 INFLUENZA VACCINE (#1) 2020 03/20/2019, 05/10/2016 Breast Cancer Screening 03/20/2020 03/20/2019, 01/13/2018, (MAMMOGRAM) 01/21/2017, Additional history exists Depression Screening 07/13/2020 07/13/2019 DTaP,Tdap,and Td Vaccines (2 - Td) 01/02/2028 01/01/2018 PNEUMOCOCCAL VACCINES 65+ Completed 03/20/2019, 01/01/2018 documented as of this encounter Results Not on filedocumented in this encounter Insurance Payer Benefit Plan / Subscriber ID Effective Phone Address T ype Group Dates MEDICARE MEDICARE PART A xxxxxxxxxxx 2010-Pre [phone] [address] [place] X Medicare & B sent [id number] [place] [id number] BCBS OF BCBS [id number] 2017-Pres [phone] [facility] TRADITIONAL ent [phone] [place] [address] documented as of this encounter
--- OUTSIDE RECORDS SUMMARY | 2020-01-20 13:04 | XMS REPORT | Continuity of Care Document ---
:1945 Author Organization [facility] t Address [address] [place] [address] Care Team Providers Name Role Phone Smitha BARAHONA Primary Care Physician Sean Bone MD Attending Clinician Problems This patient has no known problems. Allergies, Adverse Reactions, Alerts This patient has no known allergies or adverse reactions. Family History Family Member Diagnosis Comments Start Date Stop Date Source Natural father No Known Problems Ghassan Polanco Natural mother No Known Problems Ghassan Polanco Social History Social Habit Start Date Stop Date Quantity Comments Source Sex Assigned At [place] [facility] Alcohol intake 2018-07-31 2018-07-31 Current [facility] thodist 00:00:00 00:00:00 non-drinker of alcohol (finding) Smoking Status Start Date Stop Date Source Never smoker [place] [facility] t Medications Ordered Filled Start Stop Current Ordering Indication Dosage Frequency Signature Comments Components Source Medication Medication Date Date Medication? Clinician (SIG) Name Name aspirin 2017-06 Yes 81mg Take 81 mg [place] (ECOTRIN) 0-01 by mouth. Metho di 81 MG 08:25: st enteric 53 coated tablet meloxicam Yes [place] (MOBIC) 15 8-30 Methodi mg tablet 00:00: st 00 RESTASIS Yes [place] 0.05 % 6-26 Methodi ophthalmic 00:00: st emulsion 00 omeprazole Yes TAKE 1 [place] (PriLOSEC) 6-11 CAPSULE BY Met hodi 40 MG 00:00: MOUTH st capsule 00 ONCE DAILY levothyroxi 2017- Yes 50ug Take 50 Ghassan ston ne 2-08 mcg by [facility] (SYNTHROID, 00:00: mouth. st LEVOXYL) 50 00 mcg tablet Procedures This patient has no known procedures. Plan of Care Planned Activity Planned Date Details Comments Source Future Scheduled 2020-02-09 INFLUENZA VACCINE [facility]uf[facility] 00:00:00 [code = INFLUENZA VACCINE] Future Scheduled 2010 65+ PNEUMOCOCCAL Srivast[facility] Test 00:00:00 VACCINE (2 of 2 - PPSV23) [code = 65+ PNEUMOCOCCAL VACCINE (2 of 2 - PPSV23)] Future Scheduled 1995 BREAST CANCER [facility] thodist Test 00:00:00 SCREENING [code = BREAST CANCER SCREENING] Future Scheduled 1995 COLONOSCOPY SCREENING [facility] Test 00:00:00 [code = COLONOSCOPY SCREENING] Future Scheduled 1995 SHINGLES VACCINES (#1) H lyly [facility] Test 00:00:00 [code = SHINGLES VACCINES (#1)] Encounters Start End Encounter Admission Attending Care Care Encounter Source Date/Time Date/Time Type Type Clinicians Facility Department ID 2019-12-18 2019-12-18 Telephone [facility] [id number] 00:00:00 00:00:00 [facility] [id number] [facility] [id number] Professio [phone] nal [address] 2019-08-18 2019-08-18 Office [place] [id number] 14:08:36 14:23:36 Visit [facility] [id number] [facility] [id number] Professio [phone] nal 044 [address] Results This patient has no known results.
--- OUTSIDE RECORDS SUMMARY | 2020-01-20 13:04 | XMS REPORT | Clinical Summary ---
:1945 Author Organization [facility] Address [address] [place] [address] Care Team Providers Name Role Phone MD Smitha Primary Care Provider Allergies No Known Allergies Medications Medication Sig Dispensed Refills Start Date End Date Status RESTASIS 0.05 % 0 12/03/2017 Act [place] ophthalmic emulsion meloxicam (MOBIC) 15 mg 0 02/06/2018 Active tablet omeprazole (PriLOSEC) TAKE 1 CAPSULE BY 0 11/18/2017 Active 40 MG capsule MOUTH ONCE DAILY levothyroxine Take 50 mcg by 0 05/17/2017 Active (SYNTHROID, LEVOXYL) 50 mouth. mcg tablet aspirin (ECOTRIN) 81 MG Take 81 mg by 0 Active enteric coated tablet mouth. Active Problems No known active problems Family History Medical History Relation Name Comments No Known Problems Father No Known Problems Mother Relation Name Status Comments Father Mother Social History Tobacco Use Types Packs/Day Years Used Date Never Smoker Smokeless Tobacco: Never Used Alcohol Use Drinks/Week oz/Week Comments No Sex Assigned at Date Recorded Not on file Job Start Date Occupation Industry Not on file Not on file Not on file Travel History Travel Start Travel End No recent travel history available. Last Filed Vital Signs Not on file Plan of Treatment Health Maintenance Due Date Last Done Comments BREAST CANCER SCREENING 1995 COLONOSCOPY SCREENING 1995 SHINGLES VACCINES (#1) 1995 65+ PNEUMOCOCCAL VACCINE (2 of 2 - PPSV23) 04/16/201001/01 INFLUENZA VACCINE 02/09/2020 03/24/2018, 05/10/2016 Results Not on fileafter 01/19/2019 Insurance Payer Benefit Plan / Subscriber ID Effective Dates Phone Addre ss Type Group MEDICARE MEDICARE PART A xxxxxxxxxxx 2010-Present SKYE JACOME Medicare AND B BCBS BCBS CHOICE xxxxxxxxxxxx 2017-Present PPO PPO/FEDERAL EMPL PPO Advance Directives For more information, please contact: [phone] Type Date Recorded Patient Paper Machine Backtender Explanati on Advance Directives, Living Will and Medical Power of Pluck Separator
[2020-01-20] MEDS ORDERED: ONDANSETRON 4 MG/2 ML VIAL IV PRN (13:27)
[2020-01-20] MEDS ORDERED: MORPHINE 2 MG/ML SYR IV PRN (13:27)
[2020-01-20] MEDS ORDERED: ACETAMINOPHEN 500 MG TAB PO PRN (13:27)
--- NOTE | 2020-01-20 14:40 | RAD REPORT ---
EXAM DESCRIPTION: USCarotid Artery Bilateral01/20/2020 2:15 pm CLINICAL HISTORY: syncope COMPARISON: None FINDINGS: The velocity of the right internal carotid artery equals 81 cm/sec. The right ICA/CCA rati o 0.9 The velocity of the left internal carotid artery equals 94 cm/sec. The left ICA/CCA ratio 1.3 Mild plaque is present within the carotid arteries. Arteries are tortuous The vertebral arteries demonstrate antegrade flow IMPRESSION: Mild plaque within the carotid arteries without evidence of a hemodynamically significan t stenosis NASCET criteria used. Mild 0-49% stenosis Moderate 50-69% stenosis Severe 70-99% stenosis
[2020-01-20 16:12] VITALS: BMI 31.8
[2020-01-20] MEDS: NA CHLORIDE 0.9% 1,000 ML IV SCH (16:21)
[2020-01-20 22:29] VITALS: O2SAT 96
[2020-01-21 04:40] LABS: Absolute Lymphocytes (CBC) 2.7 K/uL (0.7-4.9); Hematocrit 36.3 % (36.0-45.0); Lymphocytes % 33.5 % (15.3-44.8); MPV 7.9 fL (7.6-11.3)
[2020-01-21 04:42] LABS: Protime INR 0.96
[2020-01-21 04:54] LABS: Albumin 3.4 g/dL (3.4-5.0); Bilirubin Total 0.7 mg/dL (0.2-1.0); Potassium 4.1 mmol/L (3.5-5.1); Protein, Total 6.4 g/dL (6.4-8.2)
[2020-01-21] MEDS: NA CHLORIDE 0.9% 1,000 ML IV SCH (05:11)
[2020-01-21 10:14] VITALS: BP 140/68; TEMP 97
--- NOTE | 2020-01-21 12:07 | P.HP ---
Certification for Inpatient Patient admitted to: Observation With expected LOS: <2 Midnights Patient will require the following post-hospital care: None Practitioner: I am a practitioner with admitting privileges, knowledge of patient current condition, hospital course, and medical plan of care. Services: Services provided to patient in accordance with Admission requirements found in Title 42 Section 412.3 of the Code of Federal Regulations Patient History Date of Service: 01/20/20 Reason for admission: Syncope History of Present Illness: Patient is a 74-year-old female who came to the hospital is syncopal a.m.. Patient had collapsed and hit her head. Patient has some bleeding. Patient had multiple imaging studies done in the emergency room which did not reveal any significant abnormalities. Patient was admitted to the hospital for further evaluation. Patient did have a small nasal fracture but no other abnormalities seen on MRI or CT scan of the brain. Patient a shoulder x-ray which was negative. Will monitor patient on telemetry and make sure patient is not having any arrhythmias. Will also get an echocardiogram. At this time if patient's workup is negative she should be able to go home within 24 hr. Allergies No Known Allergies Allergy (Verified 06/12/18 11:32) Home Medications: Levothyroxine Sodium [Synthroid] 50 mcg PO DAILY 01/20/20 Meloxicam 15 mg PO DAILY 01/20/20 Omeprazole [Prilosec] 40 mg PO DAILY 01/20/20 - Past Medical/Surgical History Has patient received pneumonia vaccine in the past: No Diabetic: No -: history of TIA -: Hysterectomy - Family History Father Medical History: Heart disease - Social History Smoking Status: Never smoker Alcohol use: No Caffeine use: No Place of Residence: Home Review of Systems 10-point ROS is otherwise unremarkable Physical Examination - Vital Signs Temperature: 97 F Blood Pressure: 140/68 Pulse: 57 Respirations: 18 Pulse Ox (%): 95 - Physical Exam General: Alert, In no apparent distress, Oriented x3 HEENT: PERRLA, Mucous membr. moist/pink, Other (Patient with facial trauma and bruising), EOMI, Sclerae nonicteric Neck: Supple, 2+ carotid pulse no bruit, No LAD, Without JVD or thyroid abnormality Respiratory: Clear to auscultation bilaterally, Normal air movement Cardiovascular: Regular rate/rhythm, Normal S1 S2 Gastrointestinal: Normal bowel sounds, No tenderness Musculoskeletal: No tenderness Integumentary: No rashes Neurological: Normal gait, Normal speech, Normal strength at 5/5 x4 extr, Normal tone, Normal affect Lymphatics: No axilla or inguinal lymphadenopathy Assessment & Plan - Problems (Diagnosis) (1) Syncope and collapse Current Visit: Yes Status: Acute (2) Nasal fracture Current Visit: Yes Status: Acute - Plan Plan: 1. Monitor on telemetry for any arrhythmias that may have caused her syncopal event 2. Echocardiogram and carotid Doppler 3. Neurologic workup was unremarkable 4. Outpatient follow with Cardiology if her current workup is negative and she may need further testing including stress test 5. Continue monitoring hemodynamics closely and neuro checks every 4 hr 6. Monitor for concussion symptoms 7. GI and DVT prophylaxis Discharge Plan: Home Plan to discharge in: 24 Hours - Advance Directives Does patient have a Living Will: No Does patient have a Durable POA for Healthcare: Yes - Code Status/Comfort Care Code Status Assessed: Yes Code Status: Full Code Critical Care: No Time Spent Managing PTS Care (In Minutes): 45
--- NOTE | 2020-01-21 14:36 | ECHO ---
HEIGHT: 5 ft 3 in WEIGHT: 180 lb 0 oz DATE OF STUDY: 01/21/[address]: Rahul Velez MD 2-DIMENSIONAL: YES M.MODE: YES DOPPLER: YES COLOR FLOW: YES TDS: NO PORTABLE: NO DEFINITY: NO BUBBLE STUDY: NO DIAGNOSIS: SYNCOPE CARDIAC HISTORY: CATHERIZATION: SURGERY: PROSTHETIC VALVE: PACEMAKER: MEASUREMENTS (cm) DIASTOLIC (NORMALS) SYSTOLIC (NORMALS) IVSd 1.2 (0.6-1.2) LA Diam 3.5 (1.9-4.0) LVEF 66% LVIDd 3.5 (3.5-5.7) LVIDs 2.3 (2.0-3.5) %FS 36% LVPWd 1.1 (0.6-1.2) Ao Diam 2.5 (2.0-3.7) 2 DIMENSIONAL ASSESSMENT: RIGHT ATRIUM: NORMAL LEFT ATRIUM: NORMAL RIGHT VENTRICLE: NORMAL LEFT VENTRICLE: NORMAL TRICUSPID VALVE: MILD TRICUSPID REGURGITATION MITRAL VALVE: NORMAL PULMONIC VALVE: MILD PULMONARY INSUFFICIENCY AORTIC VALVE: MILDLY CALCIFIED, NO AORTIC STENOSIS PERICARDIAL EFFUSION: NONE AORTIC ROOT: NORMAL LEFT VENTRICULAR WALL MOTION: NORMAL. DOPPLER/COLOR FLOW: NORMAL. COMMENTS: NORMAL LEFT VENTRICULAR EJECTION FRACTION 55-60% WITH NORMAL WALL MOTION. NORMAL DIASTOLIC FUNCTION. MILD TRICUSPID REGURGITATION, MILD PULMONARY INSUFFICIENCY. MILDLY CALCIFIED AORTIC VALVE BUT NO AORTIC STENOSIS. TECHNOLOGIST: YESSI CARLSON
--- NOTE | 2020-01-21 20:34 | CON ---
Reason For Consultation: Consultation called because of syncope. History Of Present Illness: Ms. Marmolejo is a 74-year-old right-handed patient with prior h istory of transient ischemic attack, who comes in after a syncopal episode. On 01/20/2020, she was t ending her garden and she bent forward and next memory is of right hand being shaky and uncontrollabl e and then she apparently fell and hit her forehead and nose. She was brought to [facility] , where her head CT and brain imaging identified a small nasal fracture, but no intracranial abnormal ities. No other findings on trauma series. She denies any prior episodes and denies history of seiz ures or strokes with any deficits. Since hospitalization, she has had no additional events. Her com plete blood count with differential was normal. Basic metabolic panel normal. Her chest x-ray showe d no acute cardiopulmonary processes. Her echocardiogram showed ejection fraction 66% with some shoemaker tolic dysfunction. Mild tricuspid regurgitation. Mild pulmonary insufficiency. Mildly calcified ao rtic valve without aortic stenosis. Carotid artery ultrasound showed no evidence of hemodynamically significant stenosis, just mild plaque bilaterally. She did receive IV fluids and she has been up and ambulating and back to her normal functioning. Allergies: NO KNOWN DRUG ALLERGIES. Home Medications: Levothyroxine 50 mcg daily, meloxicam 15 mg daily, Prilosec 40 mg daily. Past Medical History: Hypothyroidism and transient ischemic attack. Surgical History: Hysterectomy. Family History: Heart disease in father. Social History: No alcohol, tobacco, or IV drug use. The patient lives in a single-family home. Review of Systems: Aside from mentioned above, she denies any fevers, chills, nausea, vomiting, myalgias, arthralgias, h eadaches, weight change, rash, or psychiatric problems. No genitourinary or gastrointestinal problem s. Physical Examination: Vital Signs: Blood pressure 140/68, pulse 57, respiratory rate 16, temperature 97, oxygen saturation 97% on room air. Weight 180 pounds, height 5 feet 3 inches, BMI 31.9. General: Ms. Marmolejo is sitting in a chair beside her bed. She is in no acute distress. HEENT: She does have bruising over the bridge of her nose and in her forehead from the fall, otherwi se, atraumatic. Cranial nerves show no deficits on 2 through 12 and in terms of the rest of her gene ral exam is clear to auscultation. Abdomen: Soft. Extremities: Show no edema or cyanosis. Neurologic: The motor examination, she has no focal weakness in the face, arm, or leg. Sensation in tact in the face, arm, and leg. Coordination is slow, but intact in the upper and lower extremities. Gait; good stance, stride, and arm swing. Reflexes symmetric. Assessment: Ms. Marmolejo is a 74-year-old patient, who had a syncopal episode, possibly related to he modynamic issues from mild dehydration. She has no cardiac arrhythmias. Heart has good function. S he has no evidence of stroke on brain MRI and CT scan and she has no symptoms consistent with seizure s. Plan: She may be discharged home. She may follow up in Dr. Darby's clinic in perhaps a month and may at that point, if more events occur, have a routine electroencephalogram. She is instructed to drink 8 glasses of water daily and to make slow changes from sitting to standing or from bending to l ifting up while tending her garden. She may be discharged home. LB/MODL Voice ID: [id number] Report ID: [id number]
--- NOTE | 2020-01-26 12:27 | P.DS ---
Discharge Date: 01/21/20 Disposition: ROUTINE DISCHARGE Discharge Condition: GOOD Reason for Admission: Syncope Consultations: Neurology - Problems (1) Syncope and collapse Status: Acute (2) Nasal fracture Status: Acute Brief History of Present Illness: Patient is a 74-year-old female who came to the hospital is syncopal a.m.. Patient had collapsed and hit her head. Patient has some bleeding. Patient had multiple imaging studies done in the emergency room which did not reveal any significant abnormalities. Patient was admitted to the hospital for further evaluation. Patient did have a small nasal fracture but no other abnormalities seen on MRI or CT scan of the brain. Patient a shoulder x-ray which was negative. Will monitor patient on telemetry and make sure patient is not having any arrhythmias. Will also get an echocardiogram. At this time if patient's workup is negative she should be able to go home within 24 hr. Hospital Course: At this time, patient is doing well. Patient is stable for discharge home. Patient will need outpatient followup with PCP for further workup questionable syncopal episode. Return to the Emergency room if symptoms worsen. Vital Signs/Physical Exam: Temp Pulse Resp BP Pulse Ox 97 F 57 18 140/68 95 01/21/20 12:06 01/21/20 12:06 01/21/20 12:06 01/21/20 12:06 01/21/20 12:06 General: Alert, In no apparent distress, Oriented x3 Laboratory Data at Discharge: WBC 8.2 K/uL (4.3-10.9) D 01/21/20 04:19 Hgb 12.3 g/dL (12.0-15.0) 01/21/20 04:19 Hct 36.3 % (36.0-45.0) 01/21/20 04:19 Plt Count 362 K/uL (152-406) 01/21/20 04:19 PT 11.3 SECONDS (9.5-12.5) 01/21/20 04:19 INR 0.96 01/21/20 04:19 APTT 29.6 SECONDS (24.3-36.9) 01/21/20 04:19 Sodium 143 mmol/L (136-145) 01/21/20 04:19 Potassium 4.1 mmol/L (3.5-5.1) 01/21/20 04:19 BUN 18 mg/dL (7-18) 01/21/20 04:19 Creatinine 0.65 mg/dL (0.55-1.3) 01/21/20 04:19 Glucose 80 mg/dL (74-106) 01/21/20 04:19 Total Bilirubin 0.7 mg/dL (0.2-1.0) 01/21/20 04:19 AST 12 U/L (15-37) L 01/21/20 04:19 ALT 14 U/L (12-78) 01/21/20 04:19 Alkaline Phosphatase 52 U/L (45-117) 01/21/20 04:19 Troponin I 0.02 ng/mL (0.0-0.045) 01/20/20 20:02 Triglycerides 131 mg/dL (<150) 01/21/20 04:19 Cholesterol 179 mg/dL (<200) 01/21/20 04:19 HDL Cholesterol 59 mg/dL (40-60) 01/21/20 04:19 Cholesterol/HDL Ratio 3.03 01/21/20 04:19 Home Medications: Levothyroxine Sodium [Synthroid] 50 mcg PO DAILY 01/20/20 Meloxicam 15 mg PO DAILY 01/20/20 Omeprazole [Prilosec] 40 mg PO DAILY 01/20/20 Patient Discharge Instructions: OK TO DC IV AND DC HOME. FOLLOW-UP WITH PRIMARY CARE PROVIDER IN 1-2 WEEKS. FOLLOW-UP WITH CARDIOLOGY IN THE NEXT 2 WEEKS FOR POSSIBLE STRESS TESTING TO COMPLETE SYNCOPAL WORKUP. RETURN TO THE ER IF symptoms worsen. CALL or TEXT DR. JOHNSON AT [phone] IF ANY QUESTIONS REGARDING HOSPITAL STAY. PLEASE CALL THE FLOOR AT [phone] IF ANY MEDICATION OR NURSING QUESTIONS. Diet: Regular Activity: Fall precautions Followup: Obed Xavier MD [ACTIVE - CAN ADMIT] - Time spent managing pt's care (in minutes): 30
== END 2020-01-21 13:20 | disposition home or self-care (01) ==
LOC: ER 09:41 → ERHOLD 13:27 → 2ND 14:45
PROVIDERS: ADMIT Hospitalist; ATTEND Hospitalist
DX: R55 Syncope and collapse (principal); E86.0 Dehydration; S02.2XXA Fracture of nasal bones, initial encounter for closed fracture; W19.XXXA Unspecified fall, initial encounter; Y93.H2 Activity, gardening and landscaping; Y92.017 Garden or yard in single-family (private) house as the place of occurrence of the external cause; E03.9 Hypothyroidism, unspecified; Z23 Encounter for immunization; Z86.73 Personal history of transient ischemic attack (TIA), and cerebral infarction without residual deficits; I07.1 Rheumatic tricuspid insufficiency; J98.4 Other disorders of lung; I70.0 Atherosclerosis of aorta; I35.8 Other nonrheumatic aortic valve disorders; I65.23 Occlusion and stenosis of bilateral carotid arteries; Z82.49 Family history of ischemic heart disease and other diseases of the circulatory system
CPT/HCPCS: 93005; 93306; 85025 ×2; 80048; 36415; 82550; 85610 ×2; 80061; 82947; 85730 ×2; 84484 ×2; 80053; 70450; 71045; 70160; 73030; 90471; 93880; 70551; 90714; 99285; J7030 ×2; G0378 ×3

== ENCOUNTER 2020-09-17 20:48 | Emergency (ER) | payer OTHER, BC ==
--- OUTSIDE RECORDS SUMMARY | 2020-09-17 20:51 | XMS REPORT | Continuity of Care Document ---
:1945 Author Organization [facility] t Address [address] [place] [address] Care Team Providers Name Role Phone Smitha BARAHONA Primary Care Physician Lab, Fam Pob I Attending Clinician Unavailable Archie Dodge DO Attending Clinician Doctor Unassigned, Name Attending Clinician Unavailable Sean Bone MD Attending Clinician Problems This patient has no known problems. Allergies, Adverse Reactions, Alerts This patient has no known allergies or adverse reactions. Family History Family Member Diagnosis Comments Start Date Stop Date Source Natural father No Known Problems Ghassan Polanco Natural mother No Known Problems Ghassan Polanco Social History Social Habit Start Date Stop Date Quantity Comments Source Tobacco use and 2018-07-31 2018-07-31 Never used [facility]ist exposure 00:00:00 00:00:00 Alcohol intake 2018-07-31 2018-07-31 Current [facility] thodist 00:00:00 00:00:00 non-drinker of alcohol (finding) Sex [birth year] [facility]ist 00:00:00 00:00:00 Smoking Status Start Date Stop Date Source Never smoker [facility] Medications Ordered Filled Start Stop Current Ordering Indication Dosage Frequency Signature Comments Components Source Medication Medication Date Date Medication? Clinician (SIG) Name Name aspirin 2017-06 Yes 81mg Take 81 mg [place] (ECOTRIN) 0-01 by mouth. Metho di 81 MG 08:25: st enteric 53 coated tablet meloxicam Yes Srivastava (MOBIC) 15 8-30 [facility] mg tablet 00:00: st 00 RESTASIS 2017- Yes Srivastava 0.05 % 6-26 [facility] ophthalmic 00:00: st emulsion 00 omeprazole Yes TAKE 1 [place] (PriLOSEC) 6-11 CAPSULE BY Met hodi 40 MG 00:00: MOUTH st capsule 00 ONCE DAILY levothyroxi 2016-06 Yes 50ug Take 50 Ghassan ston ne 2-08 mcg by [facility] (SYNTHROID, 00:00: mouth. st LEVOXYL) 50 00 mcg tablet Procedures This patient has no known procedures. Plan of Care Planned Activity Planned Date Details Comments Source Future Scheduled 2021-01-08 INFLUENZA VACCINE [place] [facility] 00:00:00 [code = INFLUENZA VACCINE] Future Scheduled 2010 65+ PNEUMOCOCCAL [facility] 00:00:00 VACCINE (2 of 2 - PPSV23) [code = 65+ PNEUMOCOCCAL VACCINE (2 of 2 - PPSV23)] Future Scheduled 1995 BREAST CANCER [facility] [place] [facility] Test 00:00:00 SCREENING [code = BREAST CANCER SCREENING] Future Scheduled 1995 COLONOSCOPY SCREENING [facility] 00:00:00 [code = COLONOSCOPY SCREENING] Future Scheduled 1995 SHINGLES VACCINES (#1) [facility] 00:00:00 [code = SHINGLES VACCINES (#1)] Future Scheduled 1963 Hepatitis C screening [place] [facility] 00:00:00 (procedure) [code = 050462578] Future Scheduled 1961 COVID-19 VACCINE (1) Ghassan ston [facility] 00:00:00 [code = COVID-19 VACCINE (1)] Encounters Start End Encounter Admission Attending Care Care Encounter Source Date/Time Date/Time Type Type Clinicians Facility Department ID 2020-08-09 2020-08-09 Laboratory Lab, Adc [facility] [id number] 17:00:35 17:20:35 Only Fam Pob I [facility] [id number] [place] [id number] Professio [phone] nal [facility] One 2020-07-14 2020-07-14 Laboratory Lab, [facility] [id number] 16:57:13 17:17:13 Only Fam Pob I Health [id number] [place] [id number] Professio [phone] [place] [address] [address] One 2020-07-04 2020-07-04 Laboratory Lab, [facility] [id number] 17:18:09 17:38:09 Only Fam Pob I Health [id number] [place] [id number] Professio [phone] [place] [address] [address] One 2020-07-03 2020-07-03 Patient Dar [facility] [id number] 00:00:00 00:00:00 Outreach [facility] [id number] [facility] [id number] PAVILLION [id number] [id number] 2020-06-30 2020-06-30 Orders Doctor ELVIA 1.2.840.114 [id number] 00:00:00 00:00:00 Only Unassigned, SAJAN [id number] [place] [facility] [id number] [id number] 2020-06-26 2020-06-26 Laboratory Lab, [facility] 1.2.840.114 [id number] 11:57:41 12:17:41 Only Fam Pob I Health [id number] [place] [id number] Professio [phone] [place] [address] [address] One 2020-06-21 2020-06-21 Laboratory Lab, [facility] 1.2.840.114 [id number] 18:47:07 19:07:07 Only Fam Pob I Health [id number] [place] [id number] Professio [phone] [place] [address] [address] One 2020-06-21 2020-06-21 Letter Doctor ELVIA 1.2.840.114 [id number] 00:00:00 00:00:00 (Out) Unassigned, SAJAN [id number] [facility] [id number] 2020-05-04 2020-05-04 [facility] [id number] 13:20:00 23:59:00 Encounter Kimani Limon [id number] [place] [id number] [place] [id number] [id number] 2020-05-04 2020-05-04 Orders Doctor ELVIA 1.2.840.114 [id number] 00:00:00 00:00:00 Only Unassigned, SAJAN [id number] [place] [facility] [id number] 2020-05-04 2020-05-04 [facility] 1.2.840.114 [id number] 00:00:00 00:00:00 Kim[facility] [id number] Edward [place] [id number] Professio [phone] [place] [address] [address] One 2020-05-02 2020-05-02 [facility] 1.2.840.114 [id number] 00:00:00 00:00:00 [facility] [id number] Edward [place] [id number] Professio [phone] [place] [address] [address] One 2020-04-10 2020-04-10 Refill [facility] 1.2.840.114 [id number] 00:00:00 00:00:00 [facility] [id number] Edward [place] [id number] Professio [phone] [place] [address] [address] One 2020-03-22 2020-03-22 [facility] 1.2.840.114 [id number] 00:00:00 00:00:00 [facility] [id number] Edward [place] [id number] Professio [phone] [place] [address] [address] One 2020-03-21 2020-03-21 Orders Doctor ELVIA 1.2.840.114 [id number] 00:00:00 00:00:00 Only Unassigned, SAJAN [id number] [facility] [id number] 2020-01-29 2020-01-29 Telephone [facility] 1.2.840.114 [id number] 00:00:00 00:00:00 [id number] [facility] [id number] Professio [phone] nal [facility] 2020-01-28 2020-01-28 Orders Doctor ELVIA 1.2.840.114 [id number] 00:00:00 00:00:00 Only Unassigned, SAJAN [id number] [place] [facility] [id number] 2019-12-18 2019-12-18 Telephone [facility] 1.2.840.114 [id number] 00:00:00 00:00:00 [place] [id number] [facility] [id number] Professio [phone] nal [facility] One 2019-08-18 2019-08-18 Office [facility] 1.2.840.114 [id number] 14:08:36 14:23:36 Visit [place] [id number] [facility] [id number] Professio [phone] [place] [address] [address] One Results This patient has no known results.
[2020-09-17] MEDS ORDERED: HYDROCODONE/APAP 5/325 MG TAB ONE (21:38)
--- NOTE | 2020-09-17 22:21 | EDPHYS ---
Physician Documentation [facility] Name: Dee Marmolejo Age: 75 yrs Sex: Female : 1945 Arrival Date: 09/17/2020 Time: 20:51 Bed 5 Private MD: ED Physician Stevo Canada HPI: 09/17 21:10 This 75 yrs old Female presents to ER via Wheelchair with complaints of Fall cp Injury, rt leg pain. 21:10 Details of fall: The patient fell from an upright position, while standing. Patient cp reports fell on top of her causing pain and injury to right upper leg today around 1400. Since fall, patient has had increasing pain and difficulty bearing weight. Historical: - Allergies: 21:08 No Known Allergies; wh - PMHx: 21:08 Hypothyroidism; wh - Immunization history:: Adult Immunizations up to date. - Social history:: Smoking status: Patient denies any tobacco usage or history of. ROS: 21:15 MS/extremity: Positive for pain, tenderness, of the right upper leg, Negative for cp decreased range of motion, deformity, paresthesias. 21:15 Constitutional: Negative for fever, poor PO intake. cp 21:15 Cardiovascular: Negative for chest pain. 21:15 Respiratory: Negative for cough, shortness of breath, wheezing. 21:15 Abdomen/GI: Negative for abdominal pain, nausea, vomiting, and diarrhea. 21:15 Neuro: Negative for altered mental status, headache, loss of consciousness, syncope, weakness. 21:15 All other systems are negative. Exam: 21:20 Constitutional: The patient appears in no acute distress, alert, awake, cp non-diaphoretic, non-toxic, well developed, well nourished, obese. 21:20 Head/Face: Normocephalic, atraumatic. cp 21:20 Neck: ROM/movement: is normal, is supple, without pain, no range of motions limitations. 21:20 Chest/axilla: Inspection: normal. 21:20 Cardiovascular: Rate: normal, Rhythm: regular. 21:20 Respiratory: the patient does not display signs of respiratory distress, Respirations: normal, no use of accessory muscles, no retractions, labored breathing, is not present. 21:20 Abdomen/GI: Inspection: abdomen appears normal, Palpation: abdomen is soft and non-tender, in all quadrants. 21:20 Back: pain, is absent, ROM is normal. 21:20 Musculoskeletal/extremity: Extremities: grossly normal except: noted in the posterior aspect right upper femur: pain, tenderness, ROM: full passive range of motion, in the right hip and right knee, no pain with ROM, Perfusion: the extremity is normally perfused throughout, the right leg Sensation intact. 21:20 Neuro: Orientation: to person, place \T\ time. Mentation: is normal. Vital Signs: 21:05 BP 182 / 78; Pulse 65; Resp 18; Temp 97.8; Pulse Ox 100% ; Weight 104.33 kg; Height 5 wh ft. 3 in. (160.02 cm); 22:08 BP 139 / 71; Pulse 66; Resp 18; Pulse Ox 100% on R/A; wh 21:05 Body Mass Index 40.74 (104.33 kg, 160.02 cm) wh MDM: 21:05 Patient medically screened. cp 21:30 Differential diagnosis: contusion, fracture, multiple trauma. cp 22:06 Test interpretation: by ED physician or midlevel provider: xrays of right femur cp negative for fracture. 22:18 Data reviewed: vital signs, nurses notes, radiologic studies, plain films. Counseling: cp I had a detailed discussion with the patient and/or guardian regarding: the historical points, exam findings, and any diagnostic results supporting the discharge/admit diagnosis, radiology results, to return to the emergency department if symptoms worsen or persist or if there are any questions or concerns that arise at home. Response to treatment: VSS. Pain markedly improved. ED course: review of [place] prescription monitor website shows narcotic score of 030, sedative score of 010 and overdose risk score of 120. Will discharge to home for continued monitoring. 09/17 21:06 Order name: XRAY Femur RIGHT cp Administered Medications: 21:27 Drug: HYDROcodone-acetaminophen 5 mg-325 mg 1 tabs Route: PO; wh 22:47 Follow up: Response: No adverse reaction; Pain is decreased; RASS: Alert and Calm (0) Disposition: 23:00 Chart complete. cp 09/18 06:03 Co-signature as Attending Physician, Stevo Canada MD. [email or web address] Disposition: 09/17/20 22:20 Discharged to Home. Impression: Pain in right leg - upper, from fall. - Condition is Stable. - Discharge Instructions: Musculoskeletal Pain. - Prescriptions for Mobic 7.5 mg Oral Tablet - take 1 tablet by ORAL route once daily take with food; 20 tablet. Tramadol 50 mg Oral Tablet - take 1 tablet by ORAL route every 8 hours as needed; 12 tablet. - Medication Reconciliation Form, Thank You Letter, Antibiotic Education, Prescription Opioid Use form. - Follow up: Private Physician; When: 2 - 3 days; Reason: Recheck today's complaints. - Problem is new. - Symptoms have improved. Signatures: Dispatcher [employer] EDMS Shai Ariza PA PA cp Habalo, Winsy, DOROTHEA RN Stevo Canada MD MD [email or web address] Corrections: (The following items were deleted from the chart) 09/17 22:47 22:20 09/17/2020 22:20 Discharged to Home. Impression: Pain in right leg - upper, from wh fall. Condition is Stable. Forms are Medication Reconciliation Form, Thank You Letter, Antibiotic Education, Prescription Opioid Use. Follow up: Private Physician; When: 2 - 3 days; Reason: Recheck today's complaints. Problem is new. Symptoms have improved. cp
--- NOTE | 2020-09-17 22:21 | ER ---
Nurse's Notes [facility] Name: Dee Marmolejo Age: 75 yrs Sex: Female : 1945 Arrival Date: 09/17/2020 Time: 20:51 Bed 5 Private MD: Diagnosis: Pain in right leg-upper, from fall Presentation: 09/17 21:05 Chief complaint: Patient states: Pt fell backwards with someone on top of her leg, now wh Pt C/O right leg pain, denies LOC. Coronavirus screen: Client denies travel out of the [place] in the last 14 days. At this time, the client does not indicate any symptoms associated with coronavirus-19. Ebola Screen: Patient negative for fever greater than or equal to 101.5 degrees Fahrenheit, and additional compatible Ebola Virus Disease symptoms Patient denies exposure to infectious person. Initial Sepsis Screen: Does the patient meet any 2 criteria? No. Patient's initial sepsis screen is negative. Does the patient have a suspected source of infection? No. Patient's initial sepsis screen is negative. Risk Assessment: Do you want to hurt yourself or someone else? Patient reports no desire to harm self or others. Onset of symptoms was September 17, 2020. 21:05 Method Of Arrival: Wheelchair 21:05 Acuity: YULIANA 4 Historical: - Allergies: 21:08 No Known Allergies; wh - PMHx: 21:08 Hypothyroidism; wh - Immunization history:: Adult Immunizations up to date. - Social history:: Smoking status: Patient denies any tobacco usage or history of. Screenin:07 Abuse screen: Denies threats or abuse. Denies injuries from another. Nutritional screening: No deficits noted. Tuberculosis screening: No symptoms or risk factors identified. Fall Risk Fall in past 12 months (25 points). Assessment: 21:08 General: Appears in no apparent distress. Behavior is calm, cooperative, appropriate wh for age. Pain: Complains of pain in right leg Aggravated by movement. Neuro: Level of Consciousness is awake, alert, obeys commands, Oriented to person, place, time, situation, Appropriate for age. Cardiovascular: Capillary refill < 3 seconds. Respiratory: Airway is patent Respiratory effort is even, unlabored, Respiratory pattern is regular, symmetrical. GI: Abdomen is non-distended. : No signs and/or symptoms were reported regarding the genitourinary system. EENT: No signs and/or symptoms were reported regarding the EENT system. Derm: Skin is intact. Musculoskeletal: Circulation, motion, and sensation intact. 22:08 Reassessment: Patient appears in no apparent distress at this time. No changes from previously documented assessment. Patient and/or family updated on plan of care and expected duration. Pain level reassessed. Patient is alert, oriented x 3, equal unlabored respirations, skin warm/dry/pink. Vital Signs: 21:05 BP 182 / 78; Pulse 65; Resp 18; Temp 97.8; Pulse Ox 100% ; Weight 104.33 kg; Height 5 wh ft. 3 in. (160.02 cm); 22:08 BP 139 / 71; Pulse 66; Resp 18; Pulse Ox 100% on R/A; wh 21:05 Body Mass Index 40.74 (104.33 kg, 160.02 cm) ED Course: 20:51 Patient arrived in ED. cf2 20:57 Shai Ariza PA is PHCP. cp 20:57 Stevo Canada MD is Attending Physician. cp 21:04 Jose Alberto [place], DOROTHEA is Primary Nurse. 21:07 Triage completed. 21:09 Patient has correct armband on for positive identification. Bed in low position. Call light in reach. Side rails up X 1. Pulse ox on. NIBP on. 21:09 Arm band placed on right wrist. 21:50 XRAY Femur RIGHT In Process Unspecified. EDMS 22:46 No provider procedures requiring assistance completed. Patient did not have IV access during this emergency room visit. Administered Medications: 21:27 Drug: HYDROcodone-acetaminophen 5 mg-325 mg 1 tabs Route: PO; 22:47 Follow up: Response: No adverse reaction; Pain is decreased; RASS: Alert and Calm (0) Outcome: 22:20 Discharge ordered by . cp 22:46 Discharged to home via wheelchair, with family. 22:46 Condition: stable 22:46 Discharge instructions given to patient, family, Instructed on discharge instructions, follow up and referral plans. no drinking with medication, no driving heavy equipment, medication usage, POC Demonstrated understanding of instructions, follow-up care, medications, POC Prescriptions given X 2. 22:47 Patient left the ED. Signatures: Dispatcher [employer] JERRICAMS Shai Ariza PA PA cp Habalo, Winsy, RN RN Drew Roberts 2
[2020-09-18 01:42] VITALS: TEMP 97.8; O2SAT 100
[2020-09-18 01:43] VITALS: BP 139/71
--- NOTE | 2020-09-18 11:43 | RAD REPORT ---
EXAM DESCRIPTION: RAD - Femur Right - 09/17/2020 9:50 pm CLINICAL HISTORY: PAIN COMPARISON: <Comparisons> FINDINGS: The bones are diffusely osteopenic. No fracture or dislocation seen.
== END 2020-09-17 22:47 | disposition home or self-care (01) ==
LOC: ER 20:48
DX: M79.651 Pain in right thigh (principal); W19.XXXA Unspecified fall, initial encounter; E03.9 Hypothyroidism, unspecified
CPT/HCPCS: 99284

== ENCOUNTER 2020-10-09 09:28 | Observation (INO) | payer OTHER, BC ==
--- OUTSIDE RECORDS SUMMARY | 2020-10-09 09:31 | XMS REPORT | Continuity of Care Document ---
:1945 Author Organization [facility] t Address [address] [place] [address] Care Team Providers Name Role Phone Smitha [...] Tobacco use and 2018-07-31 2018-07-[address] [facility] ethodist exposure 00:00:00 00:00:00 Alcohol intake 2018-07-31 2018-07-31 Current [facility] thodist 00:00:00 00:00:00 non-drinker of alcohol (finding) Sex Assigned At [address] 1945 [facility] ethodist 00:00:00 00:00:00 Smoking Status Start Date Stop Date Source Never smoker [facility] Medications Ordered Filled Start Stop Current Ordering [...] Future Scheduled 2021-01-08 INFLUENZA VACCINE [place] [facility] 00:00:00 [code = INFLUENZA VACCINE] Future Scheduled 2010 65+ PNEUMOCOCCAL Srivastava [facility] 00:00:00 VACCINE (2 of 2 - PPSV23) [code = 65+ PNEUMOCOCCAL VACCINE (2 of 2 - PPSV23)] Future Scheduled 1995 BREAST CANCER Srivastava Ar [facility] Test 00:00:00 SCREENING [code = BREAST CANCER SCREENING] Future Scheduled 1995 COLONOSCOPY SCREENING [facility] 00:00:00 [code = COLONOSCOPY SCREENING] Future Scheduled 1995 SHINGLES VACCINES (#1) H [facility] 00:00:00 [code = SHINGLES VACCINES (#1)] Future Scheduled 1963 Hepatitis C screening [place] [facility] 00:00:00 (procedure) [code = 682142752] Future Scheduled 1961 COVID-19 VACCINE (1) Ghassan ston [facility] 00:00:00 [code = COVID-19 VACCINE (1)] Encounters Start End Encounter Admission Attending Care Care Encounter Source Date/Time Date/Time Type Type Clinicians Facility Department ID 2020-08-09 2020-08-09 Laboratory Lab, Adc [facility] [id number] 17:00:35 17:20:35 Only Fam Pob I [facility] [id number] [place] [id number] Professio [phone] nal [facility] Office Building One 2020-07-14 2020-07-14 Laboratory Lab, [facility] 1.2.840.114 [id number] 16:57:13 17:17:13 Only Fam Pob I Health [id number] [place] [id number] Professio [phone] [place] [address] [address] One 2020-07-04 2020-07-04 Laboratory Lab, [facility] 1.2.840.114 [id number] 17:18:09 17:38:09 Only Fam Pob I Health [id number] [place] [id number] Professio [phone] [place] [address] Office [address] One 2020-07-03 2020-07-03 Patient Dar [facility] 1.2.840.114 [id number] 00:00:00 00:00:00 Outreach [facility] [id number] [facility] [id number] PAVILLION [id number] 2020-06-30 2020-06-30 Orders Doctor ELVIA 1.2.840.114 [id number] 00:00:00 00:00:00 Only Unassigned, SAJAN [id number] [place] [facility] [id number] [id number] 2020-06-26 2020-06-26 Laboratory Lab, [facility] 1.2.840.114 [id number] 11:57:41 12:17:41 Only Fam Pob I Health [id number] [place] [id number] Professio [phone] [place] [address] Office [address] One 2020-06-21 2020-06-21 Laboratory Lab, [facility] 1.2.840.114 [id number] 18:47:07 19:07:07 Only Fam Pob I Health [id number] [place] [id number] Professio [phone] [place] [address] Office [address] One 2020-06-21 2020-06-21 Letter Doctor ELVIA 1.2.840.114 [id number] 00:00:00 00:00:00 (Out) Unassigned, SAJAN [id number] [place] [facility] [id number] 2020-05-04 2020-05-04 [facility] [id number] 13:20:00 23:59:00 Encounter Kimani Limon [id number] [place] [id number] [place] [id number] [id number] 2020-05-04 2020-05-04 Orders Doctor ELVIA 1.2.840.114 [id number] 00:00:00 00:00:00 Only Unassigned, SAJAN [id number] [place] [facility] [id number] [id number] [id number] 2020-05-04 2020-05-04 [facility] 1.2.840.114 [id number] 00:00:00 00:00:00 Kimani Health [id number] [place] [id number] Professio [phone] [place] [address] Office [address] One 2020-05-02 2020-05-02 [facility] 1.2.840.114 [id number] 00:00:00 00:00:00 Kimani Health [id number] [place] [id number] Professio [phone] [place] [address] Office [address] One 2020-04-10 2020-04-10 Refill [facility] 1.2.840.114 [id number] 00:00:00 00:00:00 Kimani Health [id number] [place] [id number] Professio [phone] [place] [address] Office [address] One 2020-03-22 2020-03-22 [facility] 1.2.840.114 [id number] 00:00:00 00:00:00 Kimani [facility] [id number] [place] [id number] Professio [phone] [place] [address] Office [address] One 2020-03-21 2020-03-21 Orders Doctor ELVIA 1.2.840.114 [id number] 00:00:00 00:00:00 Only Unassigned, SAJAN [id number] [place] [facility] [id number] 2020-01-29 2020-01-29 Telephone [facility] 1.2.840.114 [id number] 00:00:00 00:00:00 Kimani [place] [id number] [facility] [id number] Professio [phone] nal [facility] Building 2020-01-28 2020-01-28 Orders Doctor ELVIA 1.2.840.114 [id number] 00:00:00 00:00:00 Only Unassigned, SAJAN [id number] [place] [facility] [id number] 2019-12-18 2019-12-18 Telephone [facility] 1.2.840.114 [id number] 00:00:00 00:00:00 [facility] [id number] [facility] [id number] Professio [phone] nal [facility] Office Building One 2019-08-18 2019-08-18 Office [facility] 1.2.840.114 [id number] 14:08:36 14:23:36 Visit [facility] [id number] [facility] [id number] Professio [phone] [place] [address] [address] One Results This patient has no known results.
[2020-10-09 10:37] LABS: Absolute Lymphocytes (CBC) 1.7 K/uL (0.7-4.9); Hematocrit 38.9 % (36.0-45.0); Lymphocytes % 24.6 % (15.3-44.8); MPV 7.8 fL (7.6-11.3); RBC Red Blood Cell Count 4.27 M/uL (3.86-4.86)
[2020-10-09] MEDS ORDERED: NA CHLORIDE 0.9% 1,000 ML ONE (10:41)
[2020-10-09] MEDS ORDERED: METOPROLOL TARTRATE 5 MG/5 ML INJ IV ONE ×3 (10:41→12:15)
[2020-10-09 10:55] LABS: Albumin 3.6 g/dL (3.4-5.0); Bilirubin Direct 0.1 mg/dL (0-0.2); Bilirubin Total 0.7 mg/dL (0.2-1.0); Potassium 3.7 mmol/L (3.5-5.1); Protein, Total 7.2 g/dL (6.4-8.2)
[2020-10-09 10:55] LABS: Urine Blood Negative (Negative); Urine Glucose Negative (Negative); Urine Protein Negative (Negative); Urine Specific Gravity 1.025 (1.005-1.030)
[2020-10-09 11:01] LABS: Thyroid Stimulating Hormone 0.872 uIU/mL (0.360-3.740)
--- NOTE | 2020-10-09 13:12 | EDPHYS ---
Physician Documentation [facility] Name: Dee Marmolejo Age: 75 yrs Sex: Female : 1945 Arrival Date: 10/09/2020 Time: 09:29 Bed 5 Private MD: Kimani Bone ED Physician Rahul Brown HPI: 10/09 13:08 This 75 yrs old Female presents to ER via Ambulatory with complaints of ma2 Weakness, Urinary Frequency, Irregular Pulse. 13:08 Onset: The symptoms/episode began/occurred gradually, 1 day(s) ago. Associated signs ma2 and symptoms: Pertinent positives: Pertinent negatives: chills, dizziness, headache, paresthesias, seizure, loss of vision. Severity of symptoms: in the emergency department the symptoms. Current symptoms: Currently, the patient is not experiencing any symptoms. The patient has not experienced similar symptoms in the past. Historical: - Allergies: 09:45 No Known Allergies; aa5 - PMHx: 09:45 Hypothyroidism; aa5 - Immunization history:: Adult Immunizations unknown. - Social history:: Smoking status: Patient denies any tobacco usage or history of. - Family history:: not pertinent. ROS: 13:08 Constitutional: Negative for fever, chills, and weight loss. ma2 13:08 All other systems are negative. Exam: 13:08 Constitutional: This is a well developed, well nourished patient who is awake, alert, ma2 and in no acute distress. 13:08 Constitutional: This is a well developed, well nourished patient who is awake, alert, and in no acute distress. Head/Face: Normocephalic, atraumatic. Eyes: Pupils equal round and reactive to light, extra-ocular motions intact. Lids and lashes normal. Conjunctiva and sclera are non-icteric and not injected. Cornea within normal limits. Periorbital areas with no swelling, redness, or edema. ENT: Nares patent. No nasal discharge, no septal abnormalities noted. Tympanic membranes are normal and external auditory canals are clear. Oropharynx with no redness, swelling, or masses, exudates, or evidence of obstruction, uvula midline. Mucous membranes moist. Neck: Trachea midline, no thyromegaly or masses palpated, and no cervical lymphadenopathy. Supple, full range of motion without nuchal rigidity, or vertebral point tenderness. No Meningismus. Chest/axilla: Normal chest wall appearance and motion. Nontender with no deformity. No lesions are appreciated. Cardiovascular: Regular rate and rhythm with a normal S1 and S2. No gallops, murmurs, or rubs. Normal PMI, no JVD. No pulse deficits. Respiratory: Lungs have equal breath sounds bilaterally, clear to auscultation and percussion. No rales, rhonchi or wheezes noted. No increased work of breathing, no retractions or nasal flaring. Abdomen/GI: Soft, non-tender, with normal bowel sounds. No distension or tympany. No guarding or rebound. No evidence of tenderness throughout. Back: No spinal tenderness. No costovertebral tenderness. Full range of motion. MS/ Extremity: Pulses equal, no cyanosis. Neurovascular intact. Full, normal range of motion. Neuro: Awake and alert, GCS 15, oriented to person, place, time, and situation. Cranial nerves II-XII grossly intact. Motor strength 5/5 in all extremities. Sensory grossly intact. Cerebellar exam normal. Normal gait. Vital Signs: 09:42 BP 153 / 103; Pulse 101; Resp 18 S; Temp 98.0(O); Pulse Ox 94% on R/A; Weight 99.79 kg aa5 (R); Height 5 ft. 3 in. (160.02 cm) (R); 10:30 BP 158 / 91; Pulse 88; Resp 14; Pulse Ox 100% on R/A; hb 11:23 BP 162 / 91; Pulse 76; Resp 17; Pulse Ox 99% ; Pain 0/10; ap3 11:53 BP 161 / 100; Pulse 81; Pulse Ox 100% on R/A; ap3 12:43 BP 134 / 83 LA Supine (man/reg); Pulse 72; Resp 15; Pulse Ox 100% on R/A; Pain 0/10; ap3 13:56 BP 105 / 80; Pulse 93; Pulse Ox 99% on R/A; ap3 09:42 Body Mass Index 38.97 (99.79 kg, 160.02 cm) aa5 MDM: 09:42 Patient medically screened. ma2 13:08 Data reviewed: vital signs, nurses notes, EMS record, [facility]. Counseling: ma2 I had a detailed discussion with the patient and/or guardian regarding: the historical points, exam findings, and any diagnostic results supporting the discharge/admit diagnosis, the presence of at least one elevated blood pressure reading (>120/80) during this emergency department visit, the need for outpatient follow up. Response to treatment: the patient's symptoms have markedly improved after treatment. 10/09 09:48 Order name: Basic Metabolic Panel [facility] 10/09 09:48 Order name: CBC with Diff [facility] 10/09 09:48 Order name: Hepatic Function [facility] 10/09 09:48 Order name: Lipase [facility] 10/09 10:00 Order name: TSH [facility] 10/09 10:00 Order name: T4 Free [facility] 10/09 10:41 Order name: CBC with Automated Diff; Complete Time: 11:44 [facility] 10/09 10:55 Order name: Basic Metabolic Panel; Complete Time: 11:44 [facility] 10/09 10:55 Order name: Liver (Hepatic) Function; Complete Time: 11:44 [facility] 10/09 10:55 Order name: Lipase; Complete Time: 11:44 [facility] 10/09 10:55 Order name: Urine Dipstick-Ancillary; Complete Time: 11:44 [facility] 10/09 10:55 Order name: COVID-19 : Document "Date of Symptom Onset" if Symptomatic. aa5 10/09 11:01 Order name: T4 Free; Complete Time: 11:44 [facility] 10/09 11:01 Order name: Thyroid Stimulating Hormone; Complete Time: 11:44 [facility] 10/09 09:48 Order name: IV Saline Lock; Complete Time: 10:23 [facility] 10/09 09:48 Order name: Labs collected and sent; Complete Time: 10:23 [facility] 10/09 09:48 Order name: Urine Dipstick-Ancillary (obtain specimen); Complete Time: 10:55 [facility] 10/09 11:33 Order name: CORONAVIRUS [facility] 10/09 11:40 Order name: Diet Regular; Complete Time: 11:41 hb 10/09 12:22 Order name: SARS-COV-2 RT PCR EDMS Administered Medications: 10:28 Drug: NS 0.9% 1000 ml Route: IV; Rate: 125 ml/hr; Site: right antecubital; ap3 10:28 Drug: Metoprolol 5 mg Route: IVP; Site: right antecubital; ap3 11:14 Drug: Metoprolol 5 mg Route: IVP; Site: right antecubital; ap3 11:59 Drug: Metoprolol 5 mg Route: IVP; Site: right antecubital; ap3 13:58 Follow up: Response: No adverse reaction ap3 Disposition: 10/09/20 13:11 Hospitalization ordered by Kiran Fragoso for Observation. Preliminary diagnosis is Atrial fibrillation and flutter. - Bed requested for Telemetry/MedSurg (observation). - Status is Observation. aa5 - Condition is Stable. - Problem is new. - Symptoms are unchanged. Signatures: Dispatcher [employer] EDRubi Cruz RN RN aa5 Rahul Brown MD MD ma2 Yina Smiley RN RN ap3 Xochilt Johnson Corrections: (The following items were deleted from the chart) 14:08 13:11 Hospitalization Ordered by Kiran Fragoso DO for Observation. Preliminary eb diagnosis is Atrial fibrillation and flutter. Bed requested for Telemetry/MedSurg (observation). Status is Observation. Condition is Stable. Problem is new. Symptoms are unchanged. ma2 16:00 14:08 10/09/2020 13:11 Hospitalization Ordered by Kiran Fragoso DO for Observation. aa5 Preliminary diagnosis is Atrial fibrillation and flutter. Bed requested for Telemetry/MedSurg (observation). Status is Observation. Condition is Stable. Problem is new. Symptoms are unchanged. eb
--- NOTE | 2020-10-09 13:12 | ER ---
Nurse's Notes [facility] Name: Dee Marmolejo Age: 75 yrs Sex: Female : 1945 Arrival Date: 10/09/2020 Time: 09:29 Bed 5 Private MD: Kimani Bone Diagnosis: Atrial fibrillation and flutter Presentation: 10/09 09:42 Chief complaint: Patient states: "my legs feel weak,my arms feel heavy, I am really aa5 shaky, and I feel my heart racing every once in a while". Pt reports symptoms began today. Pt also reports urinary frequency. 09:42 Onset of symptoms was October 09, 2020. aa5 09:42 Acuity: YULIANA 3 aa5 09:42 Method Of Arrival: Ambulatory aa5 09:42 Coronavirus screen: At this time, the client does not indicate any symptoms associated aa5 with coronavirus-19. Ebola Screen: Patient negative for fever greater than or equal to 101.5 degrees Fahrenheit, and additional compatible Ebola Virus Disease symptoms. Initial Sepsis Screen: Does the patient meet any 2 criteria? HR > 90 bpm. Does the patient have a suspected source of infection? Yes:. Risk Assessment: Do you want to hurt yourself or someone else? Patient reports no desire to harm self or others. Historical: - Allergies: 09:45 No Known Allergies; aa5 - PMHx: 09:45 Hypothyroidism; aa5 - Immunization history:: Adult Immunizations unknown. - Social history:: Smoking status: Patient denies any tobacco usage or history of. - Family history:: not pertinent. Screenin:04 Abuse screen: Denies threats or abuse. Nutritional screening: No deficits noted. ap3 Tuberculosis screening: No symptoms or risk factors identified. Fall Risk No fall in past 12 months (0 pts). No secondary diagnosis (0 pts). IV access (20 points). Ambulatory Aid- None/Bed Rest/Nurse Assist (0 pts). Gait- Normal/Bed Rest/Wheelchair (0 pts) Mental Status- Oriented to own ability (0 pts). Total Brown Fall Scale indicates No Risk (0-24 pts). Assessment: 10:59 Reassessment: Patient appears in no apparent distress at this time. Patient and/or hb family updated on plan of care and expected duration. Pain level reassessed. Patient is alert, oriented x 3, equal unlabored respirations, skin warm/dry/pink. 11:01 General: Appears comfortable, Behavior is calm, cooperative, appropriate for age. Pain: ap3 Denies pain. Neuro: Level of Consciousness is awake, alert, obeys commands, Oriented to person, place, time, situation. Cardiovascular: Capillary refill < 3 seconds Patient's skin is warm and dry. Cardiovascular: Rhythm is atrial fibrillation Chest pain is denied. Respiratory: Airway is patent Respiratory effort is even, unlabored, Respiratory pattern is regular, symmetrical. GI: No signs and/or symptoms were reported involving the gastrointestinal system. : No signs and/or symptoms were reported regarding the genitourinary system. EENT: No signs and/or symptoms were reported regarding the EENT system. Derm: No signs and/or symptoms reported regarding the dermatologic system. Musculoskeletal: Reports weakness in generalized weakness. 11:52 Reassessment: Patient sitting up in bed eating a sandwich, family at the bedside. ap3 General:. 13:06 Reassessment: Patient appears in no apparent distress at this time. Patient and/or hb family updated on plan of care and expected duration. Pain level reassessed. Patient is alert, oriented x 3, equal unlabored respirations, skin warm/dry/pink. 14:00 Reassessment: Patient appears in no apparent distress at this time. Patient and/or hb family updated on plan of care and expected duration. Pain level reassessed. Patient is alert, oriented x 3, equal unlabored respirations, skin warm/dry/pink. 14:50 Reassessment: Patient appears in no apparent distress at this time. Patient and/or hb family updated on plan of care and expected duration. Pain level reassessed. Patient is alert, oriented x 3, equal unlabored respirations, skin warm/dry/pink. 14:53 Reassessment: Nurse attempted report to 2nd floor. ap3 15:08 Reassessment: Nurse attempted to call report. Informed that receiving nurse will return ap3 phone call. 15:24 Reassessment: Report given to TJ. ap3 Vital Signs: 09:42 BP 153 / 103; Pulse 101; Resp 18 S; Temp 98.0(O); Pulse Ox 94% on R/A; Weight 99.79 kg aa5 (R); Height 5 ft. 3 in. (160.02 cm) (R); 10:30 BP 158 / 91; Pulse 88; Resp 14; Pulse Ox 100% on R/A; hb 11:23 BP 162 / 91; Pulse 76; Resp 17; Pulse Ox 99% ; Pain 0/10; ap3 11:53 BP 161 / 100; Pulse 81; Pulse Ox 100% on R/A; ap3 12:43 BP 134 / 83 LA Supine (man/reg); Pulse 72; Resp 15; Pulse Ox 100% on R/A; Pain 0/10; ap3 13:56 BP 105 / 80; Pulse 93; Pulse Ox 99% on R/A; ap3 09:42 Body Mass Index 38.97 (99.79 kg, 160.02 cm) 5 ED Course: 09:29 Patient arrived in ED. as 09:29 Kimani Bone MD is Private Physician. as 09:42 Rahul Brown MD is Attending Physician. [facility] 09:42 Arm band placed on Patient placed in an exam room, on a stretcher. aa5 09:52 EKG completed in triage. Results shown to MD. aa5 09:57 Triage completed. aa5 10:13 Yina Smiley, RN is Primary Nurse. ap3 10:22 Basic Metabolic Panel Sent. 5 10:22 CBC with Diff Sent. mh5 10:22 Hepatic Function Sent. 5 10:22 Lipase Sent. 5 10:23 Patient has correct armband on for positive identification. Placed in gown. Bed in low 5 position. Call light in reach. Side rails up X2. Adult w/ patient. Warm blanket given. surveillance monitor on. Pulse ox on. NIBP on. 10:23 Initial lab(s) drawn, by me, sent to lab. EKG done, by ED staff, reviewed by Rahul Brown MD. Inserted saline lock: 20 gauge in right antecubital area, using aseptic technique. Blood collected. 10:24 T4 Free Sent. mh5 10:24 TSH Sent. 5 10:57 COVID-19 : Document "Date of Symptom Onset" if Symptomatic. Sent. 5 10:57 COVID swab sent to lab. mh5 11:39 CORONAVIRUS Sent. 5 12:43 ED physician to see patient. ap3 13:11 Kiarn Fragoso DO is Hospitalizing Provider. ma2 Administered Medications: 10:28 Drug: NS 0.9% 1000 ml Route: IV; Rate: 125 ml/hr; Site: right antecubital; ap3 10:28 Drug: Metoprolol 5 mg Route: IVP; Site: right antecubital; ap3 11:14 Drug: Metoprolol 5 mg Route: IVP; Site: right antecubital; ap3 11:59 Drug: Metoprolol 5 mg Route: IVP; Site: right antecubital; ap3 13:58 Follow up: Response: No adverse reaction ap3 Output: 11:32 Urine: 200ml (Voided); Total: 200ml. kg Outcome: 13:11 Decision to Hospitalize by Provider. ma2 16:00 Patient left the ED. aa5 Signatures: Elsie Denny Audri, RN RN aa5 Ronda Cormier RN RN Ayanna Denny 5 Rahul Brown MD MD ma2 Yina Smiley RN RN ap3 Kimberley Yu kg Corrections: (The following items were deleted from the chart) 15:08 15:02 Reassessment: Nurse attempted report to 2nd floor ap3 ap3
--- NOTE | 2020-10-09 14:24 | P.HP ---
Certification for Inpatient Patient admitted to: Observation With expected LOS: <2 Midnights Patient will require the following post-hospital care: None Practitioner: I am a practitioner with admitting privileges, knowledge of patient current condition, hospital course, and medical plan of care. Services: Services provided to patient in accordance with Admission requirements found in Title 42 Section 412.3 of the Code of Federal Regulations Patient History Date of Service: 10/09/20 Primary Care Provider: Dr. Bone; Cardiology-Dr. Green Reason for admission: Fatigue History of Present Illness: 75-year-old female with history of fatigue. Patient reported increase fatigue over several days. Some palpitations noted. She apparently fell in January and was treated here for syncope. She was released and followed up with her PCP. At that time she was sent to cardiology for further evaluation. Stress test unremarkable. Today she came to the ER for further evaluation. No evidence of chest pain, fever, chills, abdominal pain, nausea or vomiting. In the ER patient was evaluated. EKG shows atrial fibrillation with rate around 110. Patient was given metoprolol and IV fluids in the emergency room. Blood pressures were initially elevated as well. Heart rate improved. Patient still in A. fib. TSH unremarkable. Urinalysis unremarkable. Covid test negative. CBC unremarkable. BMP unremarkable. Patient admitted for further evaluation and treatment. Patient reports no history of atrial fibrillation. Patient has hypothyroidism and takes medication for this. She also takes other supplements. Allergies No Known Allergies Allergy (Verified 06/12/18 11:32) Home medications list reviewed: Yes Home Medications: Levothyroxine Sodium [Synthroid] 50 mcg PO DAILY 01/20/20 Meloxicam 15 mg PO DAILY 01/20/20 Omeprazole [Prilosec] 40 mg PO DAILY 01/20/20 - Past Medical/Surgical History Diabetic: No -: History of TIA -: Hypothyroidism -: Hysterectomy Psychosocial/ Personal History: Patient is - Family History Father -: Heart disease - Social History Smoking Status: Never smoker Alcohol use: No CD- Drugs: No Caffeine use: No Place of Residence: Home Review of Systems General: Weakness, As per HPI Eyes: Unremarkable ENT: Unremarkable Respiratory: Unremarkable Cardiovascular: Palpitations, As per HPI Gastrointestinal: Unremarkable Genitourinary: Unremarkable Musculoskeletal: Unremarkable Integumentary: Unremarkable Neurological: Unremarkable Lymphatics: Unremarkable Physical Examination - Physical Exam General: Alert, In no apparent distress, Oriented x3, Cooperative HEENT: Atraumatic, Normocephalic Neck: Supple Respiratory: Clear to auscultation bilaterally, Normal air movement Cardiovascular: Irregular heart rate/rhythm (Atrial fibrillation rate around 80) Gastrointestinal: Normal bowel sounds, Soft and benign, Non-distended, No tenderness, No masses, No rebound, No guarding Musculoskeletal: No erythema, No tenderness, No warmth Integumentary: No tenderness/swelling, No erythema, No warmth, No cyanosis Neurological: Normal speech, Normal strength at 5/5 x4 extr, Normal tone, Normal affect - Studies Laboratory Data (last 24 hrs) 10/09/20 10:20: WBC 6.80, Hgb 12.9, Hct 38.9, Plt Count 488 H 10/09/20 10:20: Sodium 143, Potassium 3.7, BUN 15, Creatinine 0.70, Glucose 95, Total Bilirubin 0.7, AST 12 L, ALT 20, Alkaline Phosphatase 67, Lipase 74 Assessment and Plan - Plan Impression: Fatigue, palpitations secondary to new onset atrial fibrillation Hypertension uncontrolled Hypothyroidism Plan: Fatigue, palpitations secondary to new onset atrial fibrillation: Patient will be admitted for further evaluation and treatment. We will continue with metoprolol 25 mg 1 pill twice daily. May need to further adjust medication. Will also start Lovenox at 1 mg/kg subcu twice daily. Will obtain echocardiogram to further evaluate. Continue to monitor telemetry and cardiac enzymes. Cardiology has been consulted to further address and evaluate. If blood pressure and heart rate remained stable patient can likely be discharged home as early as tomorrow on metoprolol and chronic anticoagulation therapy E liquis or Xarelto. Await further recommendations from cardiology. I will turn the surface over to the hospitalist team tomorrow. I will go over the plan of care with him. Advance care planning addressed in detail. Patient is full code. Patient desires to go home at discharge. Advance care [id number] minutes. Hypertension uncontrolled: Blood pressure elevated upon arrival. We will continue with metoprolol 25 mg 1 pill twice daily. May need to make further adjustments for better control. Hypothyroidism: Need to obtain restart home medication. TSH unremarkable. Discharge Plan: Home Plan to discharge in: 24 Hours - Advance Directives Does patient have a Living Will: No Does patient have a Durable POA for Healthcare: Yes - Code Status/Comfort Care Code Status Assessed: Yes (Patient is full code) Time Spent Managing Pts Care (In Minutes): 55
[2020-10-09 16:09] VITALS: BMI 38.9
[2020-10-09] MEDS ORDERED: ACETAMINOPHEN 500 MG TAB PO PRN (16:13)
[2020-10-09] MEDS ORDERED: ONDANSETRON 4 MG/2 ML VIAL IV PRN (16:13)
[2020-10-09 18:33] LABS: CKMB Creatine Kinase MB < 1.0 ng/mL (0.3-3.6); Creatine Phosphokinase 54 U/L (26-192); Troponin I < 0.02 ng/mL (0.0-0.045)
[2020-10-09] MEDS: METOPROLOL TAR 25 MG TAB PO SCH (21:16)
[2020-10-09] MEDS: ENOXAPARIN 100 MG/ML SYR SQ SCH (21:16)
[2020-10-10 03:37] LABS: Absolute Lymphocytes (CBC) 3.2 K/uL (0.7-4.9); Hematocrit 37.8 % (36.0-45.0); Lymphocytes % 33.8 % (15.3-44.8); RBC Red Blood Cell Count 4.11 M/uL (3.86-4.86)
[2020-10-10 03:39] LABS: BUN Blood Urea Nitrogen 17 mg/dL (7-18); Bicarbonate 28 mmol/L (21-32); Glucose Level 92 mg/dL (74-106); HDL Cholesterol 53 mg/dL (40-60); LDL Cholesterol, Calculated 122 (<130); Magnesium 1.8 mg/dL (1.8-2.4); Potassium 3.9 mmol/L (3.5-5.1); Sodium Level 143 mmol/L (136-145)
[2020-10-10 03:40] LABS: CKMB Creatine Kinase MB < 1.0 ng/mL (0.3-3.6); Creatine Phosphokinase 52 U/L (26-192); Troponin I < 0.02 ng/mL (0.0-0.045)
[2020-10-10] MEDS ORDERED: MAGNESIUM SULFATE 1 gm IVPB 1 GM/100 ML BAG IV ONE (07:30)
[2020-10-10] MEDS: ENOXAPARIN 100 MG/ML SYR SQ SCH (08:40)
[2020-10-10] MEDS: METOPROLOL TAR 25 MG TAB PO SCH (08:41)
[2020-10-10] MEDS ORDERED: FOLIC ACID 1 MG TABLET PO SCH (09:00)
[2020-10-10] MEDS ORDERED: POTASSIUM CL SA 10 MEQ TAB PO ONE (09:00)
[2020-10-10] MEDS ORDERED: MULTIVITAMIN TAB PO SCH (09:00)
--- NOTE | 2020-10-10 09:20 | EKG ---
Test Date: 2020-10-09 Test Time: 09:52:53 Book Cutter: EMIL MEASUREMENT RESULTS: Intervals: Rate: 109 WA: QRSD: 88 QT: 346 QTc: 465 [place]: P: WA: QRS: -32 T: 58 INTERPRETIVE STATEMENTS: Atrial fibrillation with rapid ventricular response Left axis deviation Inferior infarct, age undetermined Anterolateral infarct, age undetermined Abnormal ECG Compared to ECG 01/20/2020 10:19:46 Left-axis deviation now present Sinus rhythm no longer present Myocardial infarct finding still present Electronically Signed On 10-10-20 09:17:19 CDT by Obed Xavier
[2020-10-10 09:26] VITALS: O2SAT 96
--- NOTE | 2020-10-10 14:02 | CON ---
Date of Consultation: 10/09/2020 Reason For Consultation: New onset atrial fibrillation. History Of Present Illness: Ms. Marmolejo is a 75-year-old woman. Has a history of hypothyroidism, ga stroesophageal reflux disease. She sees who follows up on her thyroid level. Came in with new onset atrial fibrillation. She remains in atrial fibrillation, but her heart rate is in th e 60s. She is also on Lovenox. She is asymptomatic now. With her atrial fibrillation, she felt pato y weak and short of breath. Did not have any chest pain, PND, orthopnea, pedal edema, or syncope. S he denied any fever or chills. Past Medical History: As stated above. Allergies: NONE. Review of Systems: Negative. Social History: Negative for drugs or alcohol or heavy caffeine. Medications: At home include Protonix and Synthroid. Physical Examination: Vital Signs: Stable, afebrile. HEENT: Negative. Neck: Supple with no bruit. Chest: Clear. Cardiac: Revealed atrial fibrillation. No murmurs, gallops, or rubs. Abdomen: Benign. Extremities: Revealed no clubbing, cyanosis, or edema. Diagnostic Data: Normal except with atrial fibrillation. She had a normal echo and normal EKG in 2019. Impression And Plan: New onset atrial fibrillation. I agree with beta-blockers. I think she can go home on metoprolol 50 b.i.d. as well as Xarelto or Eliquis. I will leave that up to Dr. Fouzia chi. We will see her in the office as soon as possible. Echocardiogram is pending. GIORGI/LIBRADO Voice ID: [id number] Report ID: [id number]
[2020-10-10] MEDS ORDERED: TAMSULOSIN 0.4 MG SR CAP PO ONE (16:00)
[2020-10-10] MEDS ORDERED: TOLTERODINE LA 4 MG CAP PO SCH (16:00)
[2020-10-10] MEDS ORDERED: CEFTRIAXONE/SWI 1gm 1 GM/10 ML SYR IVP ONE (16:00)
--- NOTE | 2020-10-10 16:41 | RAD REPORT ---
EXAM DESCRIPTION: US - Renal Ultrasound-Complete - 10/10/2020 4:27 pm CLINICAL HISTORY: Dysuria COMPARISON: No comparison FINDINGS: The right kidney measures 9.3 x 4.7 x 4.3 cm. The left kidney measures 9.8 x 4.8 x 4.0 cm . Renal cortical thickness and echogenicity are normal. No hydronephrosis or suspicious renal mass. A 14 millimeter cyst is present lower pole right kidney. Urinary bladder is contracted limiting assessment. Patient voided just prior to the examination. IMPRESSION: No hydronephrosis or suspicious renal mass. No other significant findings.
[2020-10-10 17:14] VITALS: BP 164/90; TEMP 98.4
[2020-10-11] MEDS ORDERED: LEVOTHYROXINE SOD 0.05 MG TABLET PO SCH (06:30)
--- NOTE | 2020-10-11 08:17 | ECHO ---
HEIGHT: 5 ft 3 in WEIGHT: 220 lb 0 oz DATE OF STUDY: 10/10/[address]: Kiran Fragoso DO 2-DIMENSIONAL: YES M.MODE: YES DOPPLER: YES COLOR FLOW: YES TDS: PORTABLE: DEFINITY: BUBBLE STUDY: DIAGNOSIS: NEW ONSET ATRIAL FIBRILLATION CARDIAC HISTORY: CATHERIZATION: NO SURGERY: NO PROSTHETIC VALVE: NO PACEMAKER: NO MEASUREMENTS (cm) DIASTOLIC (NORMALS) SYSTOLIC (NORMALS) IVSd 1.0 (0.6-1.2) LA Diam 3.3 (1.9-4.0) LVEF 55-60% LVIDd 3.1 (3.5-5.7) LVIDs 2.3 (2.0-3.5) %FS 26% LVPWd 1.0 (0.6-1.2) Ao Diam 2.6 (2.0-3.7) 2 DIMENSIONAL ASSESSMENT: RIGHT ATRIUM: NORMAL LEFT ATRIUM: NORMAL RIGHT VENTRICLE: NORMAL LEFT VENTRICLE: NORMAL TRICUSPID VALVE: TRACE TRICUSPID REGURGITATION MITRAL VALVE: NORMAL PULMONIC VALVE: NORMAL AORTIC VALVE: NORMAL PERICARDIAL EFFUSION: NONE AORTIC ROOT: NORMAL LEFT VENTRICULAR WALL MOTION: NORMAL DOPPLER/COLOR FLOW: SEE BELOW COMMENTS: NORMAL LEFT VENTRICUALR EJECTION FRACTION 55-60%. NORMAL WALL MOTION. TRACE TRICUSPID REGURGITATION. TECHNOLOGIST: KIMBERLY BROOKE
[2020-10-11] MEDS ORDERED: HOME MED 1 EA UNK (Meloxicam [Meloxicam] 15 MG Tablet) PO SCH (09:00)
[2020-10-11] MEDS ORDERED: PANTOPRAZOLE 40MG TABLET PO SCH (09:00)
[2020-10-11] MEDS ORDERED: MELOXICAM 7.5 MG TAB PO SCH (09:00)
--- NOTE | 2020-10-17 19:42 | P.DS ---
Discharge Date: 10/10/20 Primary Care Provider: Dr. Bone; Cardiology-Dr. Green Disposition: ROUTINE DISCHARGE Discharge Condition: GOOD Reason for Admission: Fatigue Brief History of Present Illness: Patient is a 75-year-old female with history of fatigue. Patient reported increase fatigue over several days. Some palpitations noted. She apparently fell in January and was treated here for syncope. She was released and followed up with her PCP. At that time she was sent to cardiology for further evaluation. Stress test unremarkable. Today she came to the ER for further evaluation. No evidence of chest pain, fever, chills, abdominal pain, nausea or vomiting. In the ER patient was evaluated. EKG shows atrial fibrillation with rate around 110. Patient was given metoprolol and IV fluids in the emergency room. Blood pressures were initially elevated as well. Heart rate improved. Patient still in A. fib. TSH unremarkable. Urinalysis unremarkable. Covid test negative. CBC unremarkable. BMP unremarkable. Patient admitted for further evaluation and treatment. Patient reports no history of atrial fibrillation. Patient has hypothyroidism and takes medication for this. She also takes other supplements. Hospital Course: Will continue with antibiotic therapy. Will also continue medication for rate control. At this time, patient can go home with Augmentin for the UTI. Will also go home with Lopressor for her AFib. At this time, patient is stable for discharge home. Vital Signs/Physical Exam: Temp Pulse Resp BP Pulse Ox 98.4 F 76 16 164/90 H 97 10/10/20 16:00 10/10/20 16:00 10/10/20 16:00 10/10/20 16:00 10/10/20 16:00 General: Alert, In no apparent distress, Oriented x3 Laboratory Data at Discharge: WBC 9.40 K/uL (4.3-10.9) D 10/10/20 02:53 Hgb 12.4 g/dL (12.0-15.0) 10/10/20 02:53 Hct 37.8 % (36.0-45.0) 10/10/20 02:53 Plt Count 488 K/uL (152-406) H 10/10/20 02:53 Sodium 143 mmol/L (136-145) 10/10/20 02:53 Potassium 3.9 mmol/L (3.5-5.1) 10/10/20 02:53 BUN 17 mg/dL (7-18) 10/10/20 02:53 Creatinine 0.60 mg/dL (0.55-1.3) 10/10/20 02:53 Glucose 92 mg/dL (74-106) 10/10/20 02:53 Magnesium 1.8 mg/dL (1.8-2.4) 10/10/20 02:53 Total Bilirubin 0.7 mg/dL (0.2-1.0) 10/09/20 10:20 AST 12 U/L (15-37) L 10/09/20 10:20 ALT 20 U/L (12-78) 10/09/20 10:20 Alkaline Phosphatase 67 U/L (45-117) 10/09/20 10:20 Troponin I < 0.02 ng/mL (0.0-0.045) 10/10/20 02:53 Triglycerides 99 mg/dL (<150) 10/10/20 02:53 Cholesterol 195 mg/dL (<200) 10/10/20 02:53 HDL Cholesterol 53 mg/dL (40-60) 10/10/20 02:53 Cholesterol/HDL Ratio 3.68 10/10/20 02:53 Lipase 74 U/L (73-393) 10/09/20 10:20 Home Medications: Meloxicam 15 mg PO DAILY 01/20/20 Levothyroxine Sodium [Synthroid] 50 mcg PO DAILY 10/09/20 Pantoprazole [Protonix Tab*] 40 mg PO DAILY 10/09/20 Amox/Clavulanate [Augmentin 875-125 Tab] 875 mg PO BID #14 tab 10/10/20 Metoprolol Tartrate [Lopressor*] 25 mg PO BID #60 tab 10/10/20 Multivit,Ther Iron,Ca,FA & Min [Centrum Tablet*] 1 tab PO DAILY #30 tab 10/10/20 Tolterodine Tartrate [Detrol] 2 mg PO Q12H #60 tablet 10/10/20 New Medications: Amox/Clavulanate [Augmentin 875-125 Tab] 875 mg PO BID #14 tab Multivit,Ther Iron,Ca,FA & Min [Centrum Tablet*] 1 tab PO DAILY #30 tab Tolterodine Tartrate [Detrol] 2 mg PO Q12H #60 tablet Metoprolol Tartrate [Lopressor*] 25 mg PO BID #60 tab Diet: AHA Activity: Fall precautions Followup: Obed Xavier MD [ACTIVE - CAN ADMIT] - Kimani Bone MD [Primary Care Provider] - Time spent managing pt's care (in minutes): 35
== END 2020-10-10 18:10 | disposition home or self-care (01) ==
LOC: ER 09:28 → 2ND 13:39
PROVIDERS: ADMIT Family Medicine; ATTEND Hospitalist
DX: I48.91 Unspecified atrial fibrillation (principal); I10 Essential (primary) hypertension; E03.9 Hypothyroidism, unspecified; Z86.73 Personal history of transient ischemic attack (TIA), and cerebral infarction without residual deficits; K21.9 Gastro-esophageal reflux disease without esophagitis; Z20.822 Contact with and (suspected) exposure to COVID-19; R94.31 Abnormal electrocardiogram [ECG] [EKG]
CPT/HCPCS: 93005; 93306; 85025 ×2; 80048 ×2; 36415; 83735; 82550 ×2; 80061; 80076; 84443; 81003; 84484 ×2; 82553 ×2; 84439; 83690; 76770; 96374; 99284; U0003; J3475; J1650 ×2; J0696; J7030; G0378 ×3